=== PATIENT | male | born 1950 | race Caucasian/White ===

== ENCOUNTER 2021-02-21 18:25 | Inpatient (IN) ==
--- NOTE | 2021-02-21 19:13 | Emergency Department Note ---
Lower Extremity Injury HPI General Chief Complaint: Extremity Injury, Lower Stated Complaint: right hip fracture Time Seen by Provider: 02/21/21 18:57 Source: patient Mode of arrival: ambulatory Limitations: no limitations History of Present Illness HPI Narrative: 70-year-old male presents to the emergency department complaining of right hip pain and a possible fracture. The patient states that it began hurting him 1 month ago. He denies any trauma or injury to it. He states he had difficulty walking or pain with walking so called 911. They took him to [facility]. X-ray of the right hip at that time was interpreted as negative so he was discharged. Yesterday had a he had an appointment with Dr. Serrato. He received an injection for his knee at that location. He was at [facility] where an x-ray was taken and the patient was advised that he had a fracture. He presents the emergency department here for further care. Patient states that he has been able to walk but has been using crutches. States that the pain is a 7 on a 0-to-10 scale and is constant it is worse with walking and go up to 10 out of 10 with movement. Being still makes it better it is a dull pain mostly but sometimes sharp. There is no radiation of the pain. It is not associated with any trauma that he can recall. Related Data Home Medications Medication Instructions Recorded Confirmed ketoconazole 2 % topical cream 1 applic TOPICAL QDAY 02/05/20 02/21/21 vit C 250 mg-vit E 90 mg-zinc 40 1 tab PO BID 02/05/20 02/21/21 mg-copper 1 [id number] capsule Previous Rx's Medication Instructions Recorded Nebulizer machine; tubing and #1 ea 03/29/20 supplies ipratropium 0.5 mg-albuterol 3 mg 3 ml INHALATION QID PRN #180 ml 03/29/20 (2.5 mg base)/3 mL nebulization soln duloxetine 60 mg capsule,delayed 60 mg PO DAILY #90 cap 08/29/20 release sucralfate 1 gram tablet 1 g PO QID PRN #120 tab 09/23/20 nitroglycerin 0.4 mg sublingual See Rx Instructions .ROUTE 10/10/20 tablet .COMPLEX #30 tab zolpidem 10 mg tablet 10 mg PO QHS #30 tab 11/22/20 ergocalciferol (vitamin D2) 1,250 See Rx Instructions .ROUTE 11/30/20 mcg (50,000 unit) capsule .COMPLEX #12 cap atorvastatin 20 mg tablet 20 mg PO QHS #90 tab 12/05/20 pantoprazole 40 mg tablet,delayed See Rx Instructions .ROUTE 12/05/20 release .COMPLEX #90 tab cyclobenzaprine 5 mg tablet 5 mg PO TID PRN #60 tab 12/27/20 clopidogrel 75 mg tablet See Rx Instructions .ROUTE 01/12/21 .COMPLEX #90 tab metoprolol succinate 25 mg See Rx Instructions .ROUTE 01/12/21 tablet,extended release 24 hr .COMPLEX #90 tab finasteride 5 mg tablet See Rx Instructions .ROUTE 01/16/21 .COMPLEX #30 tab promethazine 25 mg tablet See Rx Instructions .ROUTE 01/16/21 .COMPLEX #30 tab potassium chloride 10 mEq See Rx Instructions .ROUTE 01/19/21 tablet,extended release .COMPLEX #90 tab buspirone 15 mg tablet See Rx Instructions .ROUTE 02/01/21 .COMPLEX #60 tab furosemide 20 mg tablet See Rx Instructions .ROUTE 02/10/21 .COMPLEX #180 tab tamsulosin 0.4 mg capsule See Rx Instructions .ROUTE 02/10/21 .COMPLEX #180 cap gabapentin 600 mg tablet See Rx Instructions .ROUTE 02/20/21 .COMPLEX #120 tab hydrochlorothiazide 25 mg tablet See Rx Instructions .ROUTE 02/20/21 .COMPLEX #90 tab hydroxyzine HCl 25 mg tablet 25 mg PO QID PRN #30 tab 02/20/21 magnesium oxide 400 mg (241.3 mg See Rx Instructions .ROUTE 02/20/21 magnesium) tablet .COMPLEX #90 tab trazodone 50 mg tablet 50 mg PO QHS #30 tab 02/20/21 oxycodone-acetaminophen 10 mg-325 1 tab PO .q 4-6hrs PRN #210 tab 02/21/21 mg tablet Allergies Allergy/AdvReac Type Severity Reaction Status Date / Time amitriptyline [AMITRIPTYLINE] Allergy Severe UNABLE TO Verified 02/21/21 18:28 URINATE, AT HIGH DOSES baclofen [BACLOFEN] Allergy Severe NAUSEA AND Verified 02/21/21 18:28 VOMITING meloxicam [MELOXICAM] Allergy Severe NAUSEA AND Verified 02/21/21 18:28 VOMITTING tramadol [TRAMADOL] Allergy Intermediate NAUSEA AND Verified 02/21/21 18:28 VOMITING codeine Allergy Mild rash Verified 02/21/21 18:28 latex Allergy Unknown Itching/contact Verified 02/21/21 18:28 dermatitis Review of Systems ROS ROS Narrative: Narrative: Patient has severe anxiety. States he has dependent edema though he has history I believe a congestive heart failure. Constitutional: Denies fever Eyes: Denies eye pain ENT ED: Denies throat pain Cardiovascular: Denies chest pain Respiratory: Denies shortness of breath Gastrointestinal: Denies abdominal pain Musculoskeletal: Reports back pain Integumentary: Denies rash Psychiatric: Reports anxiety Hematological/Lymphatic: Denies easy bleeding Allergic/Immunologic: Denies facial swelling PFSH Narrative Patient History Narrative: Narrative: Medical/Surgical/Family History All Active Problems (Updated 02/22/21 @ 08:41 by Matthew Mayo MD) Closed right hip fracture (Acute) Pain in right hip (Acute) Pain in right knee (Acute) Submandibular gland mass (Acute) Dysphagia (Acute) Muscle spasm (Acute) Peripheral edema (Acute) Dyspnea (Acute) CHF (congestive heart failure) (Acute) Hypoxia (Chronic) Dry skin (Acute) Panic attack (Acute) Anxiety (Acute) Seroma after procedure (Acute) Hematoma (Acute) Ecchymosis (Acute) H/O hernia repair (Acute ~08/11/20) Lumbar back pain with radiculopathy affecting right lower extremity (Acute) Thigh pain (Acute) Abnormal bruising (Acute) Hernia of abdominal cavity, with obstruction (Chronic) Nocturnal hypoxia (Chronic) Lymph node enlargement (Chronic) Abdominal pain (Chronic) COPD mixed type (Chronic) Bronchiectasis (Chronic) Chronic GERD (Chronic) Pulmonary nodules (Chronic) History of surgery (Chronic) Personal history of pulmonary embolism (Chronic) CRPS (complex regional pain syndrome), lower limb (Chronic) High cholesterol (Chronic) Post herpetic neuralgia (Chronic) Obesity, unspecified (Chronic) History of tobacco use (Chronic) Degenerative joint disease (Chronic) Low back pain (Chronic) Neuropathic pain (Chronic) Radiculopathy, lumbosacral region (Chronic) Chronic pain (Chronic) Pain in thoracic spine (Chronic) Idiopathic osteoporosis (Chronic) Chronic SI joint pain (Chronic) Radiculopathy, sacral and sacrococcygeal region (Chronic) Rotator cuff injury (Chronic ~1994) History of shingles (Chronic ~2011) Injury of low back (Chronic ~2007) Dyspnea (Chronic) Constipation (Chronic) Erectile dysfunction of nonorganic origin (Chronic) Herpes zoster complications (Chronic) Incontinence without sensory awareness (Chronic) Lumbosacral strain (Chronic) Depression (Chronic) Full incontinence of feces (Chronic) 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, unspecified site (Chronic) Fatigue (Chronic) Mononeuropathy, unspecified (Chronic) Thoracic or lumbosacral neuritis or radiculitis, unspecified (Chronic) Memory loss (Chronic) Fever, unspecified (Chronic) Rib pain on right side (Chronic) Encounter for long-term (current) use of other medications (Chronic) Radiculopathy, lumbar region (Chronic) Benign prostatic hyperplasia without lower urinary tract symptoms (Chronic) Dry skin (Chronic) Hyperuricemia without signs of inflammatory arthritis and tophaceous disease (Chronic) Encounter for general adult medical examination without abnormal findings (Chronic) Encounter for screening for malignant neoplasm of colon (Chronic) Paresthesia of hand (Chronic) Major depressive disorder, recurrent, moderate (Chronic) Atherosclerosis of extremity with rest pain (Chronic) Anxiety (Chronic) Other elevated white blood cell count (Chronic) Dysphagia (Chronic) Dermatitis (Chronic) Type 2 diabetes mellitus without complications (Chronic) Pain in left knee (Chronic) Encounter for hepatitis C screening test for low risk patient (Chronic) Adjustment disorder, unspecified (Chronic) Peripheral edema (Chronic) Peripheral neuropathy (Chronic) Tight chest (Chronic) Non-ST elevation (NSTEMI) myocardial infarction (Chronic) Benign prostatic hyperplasia with lower urinary tract symptoms (Chronic) Orthostatic hypotension (Chronic) Peritoneal abscess (Chronic) Anemia (Chronic) Hyponatremia (Chronic) Acute cholecystitis (Chronic) Other chest pain (Chronic) Collapsed vertebra, not elsewhere classified, lumbar region, sequela of fracture (Chronic) Throat pain (Chronic) Sinus tachycardia (Chronic) Urinary tract infection (Chronic) Coccyx pain (Chronic) Extensor tenosynovitis of left wrist (Chronic) Anticoagulant long-term use (Chronic) Hematoma of abdominal wall (Chronic) Lumbar back pain (Chronic) Nausea (Chronic) Postprocedural intraabdominal abscess (Chronic) Pneumoperitoneum (Chronic) History of shoulder surgery (Chronic) History of lung surgery (Chronic) Coronary artery disease (Chronic) Chronic low back pain (Chronic) Hypertension (Chronic) Hypercholesterolemia (Chronic) Small bowel obstruction (Chronic) Chest pain, unspecified (Chronic) Septicemia due to Gram-negative organism, unspecified (Chronic) Perforated bowel (Chronic) Abdominal abscess (Chronic) Abdominal pain (Chronic) Vitamin D deficiency (Chronic) Sciatica (Chronic) History of carpal tunnel surgery of right wrist (Chronic ~2015) Umbilical hernia (Chronic) Urinary retention (Chronic) Pneumonia (Chronic ~09/2012) Shingles outbreak (Chronic ~2011) Lower extremity neuropathy (Chronic) Back injury (Chronic) Diabetes mellitus (Chronic) Weakness (Chronic) Urinary incontinence (Chronic) Rotator cuff sprain (Chronic ~1994) Spontaneous pneumothorax (Chronic ~1977) Pneumonia, organism unspecified (Chronic ~08/2012) Other chronic pain (Chronic) Overactive bladder (Chronic 08/28/13) Insomnia, unspecified (Chronic) Hypertension, essential (Chronic) Hyperlipidemia (Chronic) Herpes zoster with unspecified complication (Chronic ~2011) Gastroesophageal reflux (Chronic) Fecal incontinence (Chronic) Depressive disorder (Chronic) Situational depression (Chronic) Contusion of multiple sites, not elsewhere classified (Chronic) Collapsed lung (Chronic) Chronic pain syndrome (Chronic) Benign prostatic hyperplasia (Chronic 05/13/13) Medical History Abdominal abscess Abdominal pain Acute cholecystitis Adjustment disorder, unspecified Anemia Anxiety Atherosclerosis of extremity with rest pain Back injury low back sacral-coccygeal 2007 L&I: Severe chronic pain, disabled, pain pump per Dr Reina Benign prostatic hyperplasia (05/13/13) with urinary symptoms(luts) Benign prostatic hyperplasia with lower urinary tract symptoms Benign prostatic hyperplasia without lower urinary tract symptoms Bronchiectasis Chest pain, unspecified CHF (congestive heart failure) Chronic GERD Chronic low back pain Chronic pain with intrathecal pump in place Chronic pain syndrome Chronic SI joint pain Collapsed lung in the 70's Collapsed vertebra, not elsewhere classified, lumbar region, sequela of fracture Constipation Contusion of multiple sites, not elsewhere classified COPD mixed type Coronary artery disease CRPS (complex regional pain syndrome), lower limb Degenerative joint disease Depression Depressive disorder Dermatitis Diabetes mellitus Dry skin Dysphagia Dyspnea Dyspnea Encounter for general adult medical examination without abnormal findings Encounter for hepatitis C screening test for low risk patient Encounter for long-term (current) use of other medications NARCOTICS Encounter for screening for malignant neoplasm of colon Erectile dysfunction of nonorganic origin Fatigue Fecal incontinence Fever, unspecified Full incontinence of feces Gastroesophageal reflux Herpes zoster complications Herpes zoster with unspecified complication (~2011) High cholesterol History of shingles (~2011) LEFT BUTTOCK History of tobacco use Hypercholesterolemia Hyperlipidemia Hypertension Hypertension, essential Hyperuricemia without signs of inflammatory arthritis and tophaceous disease Hyponatremia Hypoxia Idiopathic osteoporosis with compression fracture, vertebra, active treatment Incontinence without sensory awareness Injury of low back (~2007) SACRAL COCCYGEAL L&I Insomnia, unspecified Low back pain Lower extremity neuropathy Severe, both legs Lumbosacral strain Major depressive disorder, recurrent, moderate Memory loss Mononeuropathy, unspecified Neuropathic pain right lower limb, left lower limb Nocturnal hypoxia Non-ST elevation (NSTEMI) myocardial infarction Obesity, unspecified Orthostatic hypotension 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, unspecified site Other chest pain right side Other chronic pain Low back, Rt hip and buttock, down to leg and toes Other elevated white blood cell count Overactive bladder (08/28/13) Pain in left knee Pain in thoracic spine Paresthesia of hand Perforated bowel Peripheral edema Peripheral neuropathy Peritoneal abscess Personal history of pulmonary embolism Pneumonia (~09/2012) 08/2012 Pneumonia, organism unspecified (~08/2012) Pneumoperitoneum Post herpetic neuralgia Pulmonary nodules Radiculopathy, lumbar region Radiculopathy, lumbosacral region Radiculopathy, sacral and sacrococcygeal region Rib pain on right side Rotator cuff injury (~1994) Rotator cuff sprain (~1994) Sciatica Septicemia due to Gram-negative organism, unspecified Shingles outbreak (~2011) Left buttock Sinus tachycardia Situational depression Small bowel obstruction Spontaneous pneumothorax (~1977) Thoracic or lumbosacral neuritis or radiculitis, unspecified Throat pain Tight chest Type 2 diabetes mellitus without complications Umbilical hernia Urinary incontinence Urinary retention Vitamin D deficiency Weakness Both legs Surgical History H/O hernia repair (~08/11/20) History of carpal tunnel surgery of right wrist (~2015) Dr Earl History of colonoscopy (05/10/16) x 2 2001 & 2015 History of colostomy History of cystoscopy (~07/2013) History of exploratory laparotomy (03/12/19) History of exploratory laparotomy (03/13/19) for postop bleed History of heart artery stent History of lung surgery right lung History of shoulder surgery History of surgery (03/14/19) abdominal wall closure, wound vac placement History of surgery Pump Dye Study w/o sed 03/16/2002/14 Caudal QASIM #1 w/o sed 02/22/20 Vertebroplaty L1 w/sed 12/22/19 Caudal QASIM #3 w/o sed 11/24/19 Caudal QASIM #2 w/o sed 09/07/2019 Caudal QASIM #1 w/o sed 08/17/19 Vertebroplasty T11, L3, L4 w/sed 03/05/19 NAOT L5-S1 w/o sed 03/06/2017 NAOT L5-S1 w/o sed 03/05/2017 NAOT L4-5 w/o sed 03/04/2017 Caudal QASIM #2 w/o sed 12/25/2016 Caudal QASIM w/o sed 11/22/2016 SCS Trial w/sed 09/29/2014 No Procedure-plan pt to trial magic cream no relief witj inj 05/31/11 Sympathetic Block Sacral (caudal) w/out (05-16-11) Sacral Epidural Sympathetic Block w/o sed 05-09-11 No Procedure-no relief with inj. plan medication management. 11/08/10 L2 and L4 Sympathetic Block w/sed (10-23-10) History of transurethral resection of prostate History of umbilical hernia repair (~11/2013) S/P epidural steroid injection Caudal #2 w/o sed 09/07/2019, Caudal QASIM #1 w/o sed 08/17/19, Caudal QASIM #2 w/o sed 12/25/2016; Caudal QASIM w/o sed 11/22/2016 S/P vertebroplasty Vertebroplasty T11, L3, L4 w/sed 03/05/19 Status post colostomy takedown Status post insertion of spinal cord stimulator (09/29/14) electrodes for [email or web address] Family History Family/Other Metastatic cancer, Onset Age: 60 uncle Myocardial infarction cousin, age 40-50 Other Family history of malignant neoplasm, unspecified Migraine Rheumatoid arthritis Social History Smoking Status: Former smoker Alcohol Intake Frequency: does not drink Substance Use: does not use Exam Narrative Narrative: Narrative: Well-developed morbidly obese middle-age male lying in bed calm in mild to moderate acute distress. General Limitations: no limitations General appearance: Present alert and in distress Head Head: Present atraumatic and normocephalic Eye Eye: Present normal appearance and EOMI Neck Neck: Present trachea midline Chest Chest: Present normal inspection and symmetric chest wall rise Respiratory Respiratory: Absent respiratory distress Cardiovascular Cardiovascular: Present tachycardia Adbominal Abdominal: Present soft; Absent tenderness Extremities Extremities: Present other (Right hip with pain with flexion of the hip. Sensorimotor circulation intact distally.) Neurological Neurological: Present alert and oriented X3 Psychiatric Psychiatric: Present anxious Skin Skin: Present warm (WNL) and dry Course Consultations Consultation #1: Consulted Dr. Higgins the orthopedist. He advised that the pa myronnt admitted to the hospitalist and that he would see the patient here in the hospital tomorrow. Time: 19:08 Vital Signs Vital signs: Vital Signs Temperature 99.1 F H 02/21/21 18:26 Pulse Rate 101 H 02/21/21 18:26 Respiratory Rate 18 02/21/21 18:26 Blood Pressure 128/76 02/21/21 18:26 Pulse Oximetry (%) 98 02/21/21 18:26 Temperature 98.0 F 02/22/21 08:00 Pulse Rate 86 02/22/21 08:00 Respiratory Rate 20 02/22/21 08:00 Blood Pressure 130/78 02/22/21 08:00 Pulse Oximetry (%) 94 02/22/21 08:00 [facility] Narrative Medical decision making narrative: Narrative: 70-year-old male presenting with right hip pain and having been told that he has a fracture in the right hip. Initial vital signs have tachycardia at 101 and temperature 99.1. Differential diagnosis includes right hip fracture, right hip pain of other etiology, sepsis in view of fever and tachycardia. Patient has multiple other medical problems to go with this. I reviewed the x-ray myself and it shows a minimally displaced fracture of the right hip. I reviewed the radiologist comments who describes it as a minimally displaced acute subcapital fracture. I discussed the case with Dr. Higgins the orthopedist he is request the patient be admitted to the hospital and that he will see the patient tomorrow for likely surgery. In view of the fever and tachycardia I have added a lactate to the other blood tests which include CBC and CMP and INR per the request of Dr. Higgins. EKG will be obtained as well as a chest x-ray in view of the patient being preop. Case was discussed with the hospitalist who came to the [facility] department eval uate the patient and will continue management as an inpatient. Dr. Salinas will review the preop labs and x-rays and EKG that was ordered for Dr. Higgins. Lab Data Result diagrams: 02/22/21 05:45 02/22/21 05:45 Labs: Lab Results 02/21/21 02/21/21 02/21/21 Range/Units 19:13 19:13 19:13 WBC TNP RBC TNP Hgb TNP Hct TNP MCV TNP MCH TNP MCHC TNP RDW TNP Plt Count TNP MPV TNP Neut % (Auto) TNP Lymph % (Auto) TNP [place] % (Auto) TNP Eos % (Auto) TNP Baso % (Auto) TNP Lymph # (Auto) TNP [place] # (Auto) TNP Eos # (Auto) TNP Baso # (Auto) TNP Absolute Neutrophils TNP Differential Comment TNP PT 16.4 H (11.9-14.5) sec INR 1.3 H (0.9-1.1) VBG Lactic Acid (0.5-2.0) mmol/L Sodium 134 (133-145) mmol/L Potassium 4.5 (3.3-5.1) mmol/L Chloride 97 (96-108) mmol/L Carbon Dioxide 30 (22-30) mmol/L Anion Gap 7.0 L (8.0-16.0) BUN 24 H (8-23) mg/dL Creatinine 0.8 (0.7-1.2) mg/dL GFR Calculation 91 Glucose 96 (70-105) mg/dL Calcium 9.1 (8.6-10.4) mg/dL Total Bilirubin 0.9 (0.1-1.0) mg/dL AST 19 (<40) U/L ALT 13 (<40) U/L Alkaline Phosphatase 134 H (39-117) U/L Total Protein 7.5 (5.9-8.4) gm/dL Albumin 4.2 (3.2-5.2) gm/dL Globulin 3.3 (2.2-3.7) gm/dL Albumin/Globulin Ratio 1.3 (1.0-2.3) Urine Color Urine Appearance (Clear) Urine pH (5.0-9.0) Ur Specific [place] (1.000-1.035) Urine Protein (Negative) mg/dL Urine Glucose (UA) (Negative) mg/dL Urine Ketones (Negative) mg/dL Urine Occult Blood (Negative) mg/dL Urine Nitrate (Negative) Urine Bilirubin (Negative) mg/dL Urine Urobilinogen mg/dL Ur Leukocyte Esterase (Negative) /ug Ur Culture Indicated? 02/21/21 02/21/21 02/21/21 Range/Units 19:32 20:16 20:43 WBC 11.3 H RBC 3.09 L Hgb 9.4 L Hct 29.0 L MCV 93.9 MCH 30.4 MCHC 32.4 RDW 19.2 H Plt Count 224 MPV 11.4 H Neut % (Auto) 79.0 H Lymph % (Auto) 10.7 L [place] % (Auto) 10.1 Eos % (Auto) 0 Baso % (Auto) 0.2 Lymph # (Auto) 1.21 L [place] # (Auto) 1.14 H Eos # (Auto) 0 Baso # (Auto) 0.02 Absolute Neutrophils 8.92 H Differential Comment PT (11.9-14.5) sec INR (0.9-1.1) VBG Lactic Acid 1.2 (0.5-2.0) mmol/L Sodium (133-145) mmol/L Potassium (3.3-5.1) mmol/L Chloride (96-108) mmol/L Carbon Dioxide (22-30) mmol/L Anion Gap (8.0-16.0) BUN (8-23) mg/dL Creatinine (0.7-1.2) mg/dL GFR Calculation Glucose (70-105) mg/dL Calcium (8.6-10.4) mg/dL Total Bilirubin (0.1-1.0) mg/dL AST (<40) U/L ALT (<40) U/L Alkaline Phosphatase (39-117) U/L Total Protein (5.9-8.4) gm/dL Albumin (3.2-5.2) gm/dL Globulin (2.2-3.7) gm/dL Albumin/Globulin Ratio (1.0-2.3) Urine Color Yellow Urine Appearance Clear (Clear) Urine pH 6.0 (5.0-9.0) Ur Specific [place] 1.026 (1.000-1.035) Urine Protein Negative (Negative) mg/dL Urine Glucose (UA) Negative (Negative) mg/dL Urine Ketones Negative (Negative) mg/dL Urine Occult Blood Negative (Negative) mg/dL Urine Nitrate Negative (Negative) Urine Bilirubin Negative (Negative) mg/dL Urine Urobilinogen Negative mg/dL Ur Leukocyte Esterase Negative (Negative) /ug Ur Culture Indicated? No ED POC Tests ED POC Tests: ANN MARIE - SARS Antigen Negative EKG Data EKG #1: EKG attestation: Yes I reviewed and interpreted this EKG. EKG shows normal: sinus rhythm Rate: normal Rhythm: NSR [place]/QRS: normal ST segment elevation in: None ST segment depression in: None Interpretation: normal EKG Discharge Plan Patient/Caregiver Discharge Instructions Pt seen by [employer] TR[employer] DRIVER/PA only: No Clinical Impression: Closed right hip fracture Qualifiers: Encounter type: initial encounter Qualified Code(s): S72.001A - Fracture of unspecified part of neck of right femur, initial encounter for closed fracture Patient Disposition: Xfer As Inpt ([facility]) Condition: Fair Discharge Date/Time: 02/21/21 20:47
[2021-02-21] MEDS ORDERED: 0.9 % SODIUM CHLORIDE 1,000 ML IV SCH (19:15)
[2021-02-21 20:06] LABS: INR 1.3 (0.9-1.1); Prothrombin Time 16.4 sec (11.9-14.5)
[2021-02-21 20:07] LABS: ALT/SGPT 13 U/L (<40); AST/SGOT 19 U/L (<40); Albumin 4.2 gm/dL (3.2-5.2); Albumin/Globulin Ratio 1.3 (1.0-2.3); Alkaline Phosphatase 134 U/L (39-117); Bilirubin,Total 0.9 mg/dL (0.1-1.0); Blood Urea Nitrogen 24 mg/dL (8-23); Calcium 9.1 mg/dL (8.6-10.4); Carbon Dioxide 30 mmol/L (22-30); Chloride 97 mmol/L (96-108); Globulin 3.3 gm/dL (2.2-3.7); Glomerular Filtration Rate 91; Glucose 96 mg/dL (70-105)
--- NOTE | 2021-02-21 20:39 | Internal Med History&Physical ---
HPI History of Present Illness Patient information: Note initiated : 02/21/21 at 8:31 pm Service Date, if different from initiated Date: [] Patient: Brendan Leon 70 y/o M admitted on for right hip fracture. Chief Complaint: [] History of present illness: Mr. Leon is a 70 year old M who presented to the ER following 1 month onset of right hip pain without specific precipitating event. Patient was evaluated a month ago with a negative hip imaging. Ortho next 30 days pain continue to worsen with progressive difficulty ambulating. He was evaluated at the pain clinic and underwent right knee and right hip steroid shot and underwent a repe at imaging that was consistent with right hip fracture. He was subsequently returned to the ER for evaluation. Orthopedics was consulted and recommended admission for operative intervention. Subsequently hospitalist service was consulted. At the time of my evaluation patient is alert and oriented. He was able to answer most of the questions. He takes chronic pain medication and is a very a nxious personality. Denies trauma or fall and has been wondering what might have caused the fracture. Orthopedics ordered MRI in the morning to exclude bony pathology. Pain is reasonably controlled on pain medication. He denies fever, redness, chills, diarrhea, abdominal pain Review of systems 10 point review system was performed and is negative except as above PFSH PFSH All Active Problems (Updated 02/23/21 @ 06:40 by Ian Higgins MD) Closed right hip fracture (Acute) Pain in right hip (Acute) Pain in right knee (Acute) Submandibular gland mass (Acute) Dysphagia (Acute) Muscle spasm (Acute) Peripheral edema (Acute) Dyspnea (Acute) CHF (congestive heart failure) (Acute) Hypoxia (Chronic) Dry skin (Acute) Panic attack (Acute) Anxiety (Acute) Seroma after procedure (Acute) Hematoma (Acute) Ecchymosis (Acute) H/O hernia repair (Acute ~08/11/20) Lumbar back pain with radiculopathy affecting right lower extremity (Acute) Thigh pain (Acute) Abnormal bruising (Acute) Hernia of abdominal cavity, with obstruction (Chronic) Nocturnal hypoxia (Chronic) Lymph node enlargement (Chronic) Abdominal pain (Chronic) COPD mixed type (Chronic) Bronchiectasis (Chronic) Chronic GERD (Chronic) Pulmonary nodules (Chronic) History of surgery (Chronic) Personal history of pulmonary embolism (Chronic) CRPS (complex regional pain syndrome), lower limb (Chronic) High cholesterol (Chronic) Post herpetic neuralgia (Chronic) Obesity, unspecified (Chronic) History of tobacco use (Chronic) Degenerative joint disease (Chronic) Low back pain (Chronic) Neuropathic pain (Chronic) Radiculopathy, lumbosacral region (Chronic) Chronic pain (Chronic) Pain in thoracic spine (Chronic) Idiopathic osteoporosis (Chronic) Chronic SI joint pain (Chronic) Radiculopathy, sacral and sacrococcygeal region (Chronic) Rotator cuff injury (Chronic ~1994) History of shingles (Chronic ~2011) Injury of low back (Chronic ~2007) Dyspnea (Chronic) Constipation (Chronic) Erectile dysfunction of nonorganic origin (Chronic) Herpes zoster complications (Chronic) Incontinence without sensory awareness (Chronic) Lumbosacral strain (Chronic) Depression (Chronic) Full incontinence of feces (Chronic) 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, unspecified site (Chronic) Fatigue (Chronic) Mononeuropathy, unspecified (Chronic) Thoracic or lumbosacral neuritis or radiculitis, unspecified (Chronic) Memory loss (Chronic) Fever, unspecified (Chronic) Rib pain on right side (Chronic) Encounter for long-term (current) use of other medications (Chronic) Radiculopathy, lumbar region (Chronic) Benign prostatic hyperplasia without lower urinary tract symptoms (Chronic) Dry skin (Chronic) Hyperuricemia without signs of inflammatory arthritis and tophaceous disease (Chronic) Encounter for general adult medical examination without abnormal findings (Chronic) Encounter for screening for malignant neoplasm of colon (Chronic) Paresthesia of hand (Chronic) Major depressive disorder, recurrent, moderate (Chronic) Atherosclerosis of extremity with rest pain (Chronic) Anxiety (Chronic) Other elevated white blood cell count (Chronic) Dysphagia (Chronic) Dermatitis (Chronic) Type 2 diabetes mellitus without complications (Chronic) Pain in left knee (Chronic) Encounter for hepatitis C screening test for low risk patient (Chronic) Adjustment disorder, unspecified (Chronic) Peripheral edema (Chronic) Peripheral neuropathy (Chronic) Tight chest (Chronic) Non-ST elevation (NSTEMI) myocardial infarction (Chronic) Benign prostatic hyperplasia with lower urinary tract symptoms (Chronic) Orthostatic hypotension (Chronic) Peritoneal abscess (Chronic) Anemia (Chronic) Hyponatremia (Chronic) Acute cholecystitis (Chronic) Other chest pain (Chronic) Collapsed vertebra, not elsewhere classified, lumbar region, sequela of fracture (Chronic) Throat pain (Chronic) Sinus tachycardia (Chronic) Urinary tract infection (Chronic) Coccyx pain (Chronic) Extensor tenosynovitis of left wrist (Chronic) Anticoagulant long-term use (Chronic) Hematoma of abdominal wall (Chronic) Lumbar back pain (Chronic) Nausea (Chronic) Postprocedural intraabdominal abscess (Chronic) Pneumoperitoneum (Chronic) History of shoulder surgery (Chronic) History of lung surgery (Chronic) Coronary artery disease (Chronic) Chronic low back pain (Chronic) Hypertension (Chronic) Hypercholesterolemia (Chronic) Small bowel obstruction (Chronic) Chest pain, unspecified (Chronic) Septicemia due to Gram-negative organism, unspecified (Chronic) Perforated bowel (Chronic) Abdominal abscess (Chronic) Abdominal pain (Chronic) Vitamin D deficiency (Chronic) Sciatica (Chronic) History of carpal tunnel surgery of right wrist (Chronic ~2015) Umbilical hernia (Chronic) Urinary retention (Chronic) Pneumonia (Chronic ~09/2012) Shingles outbreak (Chronic ~2011) Lower extremity neuropathy (Chronic) Back injury (Chronic) Diabetes mellitus (Chronic) Weakness (Chronic) Urinary incontinence (Chronic) Rotator cuff sprain (Chronic ~1994) Spontaneous pneumothorax (Chronic ~1977) Pneumonia, organism unspecified (Chronic ~08/2012) Other chronic pain (Chronic) Overactive bladder (Chronic 08/28/13) Insomnia, unspecified (Chronic) Hypertension, essential (Chronic) Hyperlipidemia (Chronic) Herpes zoster with unspecified complication (Chronic ~2011) Gastroesophageal reflux (Chronic) Fecal incontinence (Chronic) Depressive disorder (Chronic) Situational depression (Chronic) Contusion of multiple sites, not elsewhere classified (Chronic) Collapsed lung (Chronic) Chronic pain syndrome (Chronic) Benign prostatic hyperplasia (Chronic 05/13/13) Medical History Abdominal abscess Abdominal pain Acute cholecystitis Adjustment disorder, unspecified Anemia Anxiety Atherosclerosis of extremity with rest pain Back injury low back sacral-coccygeal 2007 L&I: Severe chronic pain, disabled, pain pump per Dr Reina Benign prostatic hyperplasia (05/13/13) with urinary symptoms(luts) Benign prostatic hyperplasia with lower urinary tract symptoms Benign prostatic hyperplasia without lower urinary tract symptoms Bronchiectasis Chest pain, unspecified CHF (congestive heart failure) Chronic GERD Chronic low back pain Chronic pain with intrathecal pump in place Chronic pain syndrome Chronic SI joint pain Collapsed lung in the 70's Collapsed vertebra, not elsewhere classified, lumbar region, sequela of fracture Constipation Contusion of multiple sites, not elsewhere classified COPD mixed type Coronary artery disease CRPS (complex regional pain syndrome), lower limb Degenerative joint disease Depression Depressive disorder Dermatitis Diabetes mellitus Dry skin Dysphagia Dyspnea Dyspnea Encounter for general adult medical examination without abnormal findings Encounter for hepatitis C screening test for low risk patient Encounter for long-term (current) use of other medications NARCOTICS Encounter for screening for malignant neoplasm of colon Erectile dysfunction of nonorganic origin Fatigue Fecal incontinence Fever, unspecified Full incontinence of feces Gastroesophageal reflux Herpes zoster complications Herpes zoster with unspecified complication (~2011) High cholesterol History of shingles (~2011) LEFT BUTTOCK History of tobacco use Hypercholesterolemia Hyperlipidemia Hypertension Hypertension, essential Hyperuricemia without signs of inflammatory arthritis and tophaceous disease Hyponatremia Hypoxia Idiopathic osteoporosis with compression fracture, vertebra, active treatment Incontinence without sensory awareness Injury of low back (~2007) SACRAL COCCYGEAL L&I Insomnia, unspecified Low back pain Lower extremity neuropathy Severe, both legs Lumbosacral strain Major depressive disorder, recurrent, moderate Memory loss Mononeuropathy, unspecified Neuropathic pain right lower limb, left lower limb Nocturnal hypoxia Non-ST elevation (NSTEMI) myocardial infarction Obesity, unspecified Orthostatic hypotension 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, unspecified site Other chest pain right side Other chronic pain Low back, Rt hip and buttock, down to leg and toes Other elevated white blood cell count Overactive bladder (08/28/13) Pain in left knee Pain in thoracic spine Paresthesia of hand Perforated bowel Peripheral edema Peripheral neuropathy Peritoneal abscess Personal history of pulmonary embolism Pneumonia (~09/2012) 08/2012 Pneumonia, organism unspecified (~08/2012) Pneumoperitoneum Post herpetic neuralgia Pulmonary nodules Radiculopathy, lumbar region Radiculopathy, lumbosacral region Radiculopathy, sacral and sacrococcygeal region Rib pain on right side Rotator cuff injury (~1994) Rotator cuff sprain (~1994) Sciatica Septicemia due to Gram-negative organism, unspecified Shingles outbreak (~2011) Left buttock Sinus tachycardia Situational depression Small bowel obstruction Spontaneous pneumothorax (~1977) Thoracic or lumbosacral neuritis or radiculitis, unspecified Throat pain Tight chest Type 2 diabetes mellitus without complications Umbilical hernia Urinary incontinence Urinary retention Vitamin D deficiency Weakness Both legs Surgical History H/O hernia repair (~08/11/20) History of carpal tunnel surgery of right wrist (~2015) Dr Earl History of colonoscopy (05/10/16) x 2 2001 & 2015 History of colostomy History of cystoscopy (~07/2013) History of exploratory laparotomy (03/12/19) History of exploratory laparotomy (03/13/19) for postop bleed History of heart artery stent History of lung surgery right lung History of shoulder surgery History of surgery (03/14/19) abdominal wall closure, wound vac placement History of surgery Pump Dye Study w/o sed 03/16/2002/14 Caudal QASIM #1 w/o sed 02/22/20 Vertebroplaty L1 w/sed 12/22/19 Caudal QASIM #3 w/o sed 11/24/19 Caudal QASIM #2 w/o sed 09/07/2019 Caudal QASIM #1 w/o sed 08/17/19 Vertebroplasty T11, L3, L4 w/sed 03/05/19 NAOT L5-S1 w/o sed 03/06/2017 NAOT L5-S1 w/o sed 03/05/2017 NAOT L4-5 w/o sed 03/04/2017 Caudal QAISM #2 w/o sed 12/25/2016 Caudal QASIM w/o sed 11/22/2016 SCS Trial w/sed 09/29/2014 No Procedure-plan pt to trial magic cream no relief witj inj 05/31/11 Sympathetic Block Sacral (caudal) w/out (05-16-11) Sacral Epidural Sympathetic Block w/o sed 05-09-11 No Procedure-no relief with inj. plan medication management. 11/08/10 L2 and L4 Sympathetic Block w/sed (10-23-10) History of transurethral resection of prostate History of umbilical hernia repair (~11/2013) S/P epidural steroid injection Caudal #2 w/o sed 09/07/2019, Caudal QASIM #1 w/o sed 08/17/19, Caudal QASIM #2 w/o sed 12/25/2016; Caudal QASIM w/o sed 11/22/2016 S/P vertebroplasty Vertebroplasty T11, L3, L4 w/sed 03/05/19 Status post colostomy takedown Status post insertion of spinal cord stimulator (09/29/14) electrodes for trial-TC Ice [employer] Family History Family/Other Metastatic cancer, Onset Age: 60 uncle Myocardial infarction cousin, age 40-50 Other Family history of malignant neoplasm, unspecified Migraine Rheumatoid arthritis Social History marital status: occupational status: disabled occupation: [employer] other: Nickname "[employer]" physical activity: walking frequency: 3-4 times per week smoking status: Former smoker quit date: 01/27/08 pack-years: 40 counseling given: other details: Started age 17: Year quit 2007 alcohol intake frequency: does not drink substance use type: does not use seatbelt use: always MEDS/ALLERGIES Home Medications and Allergies Home Medications Medication Instructions Recorded Confirmed Type ketoconazole 2 % topical cream 1 applic TOPICAL QDAY 02/05/20 02/21/21 History vit C 250 mg-vit E 90 mg-zinc 40 1 tab PO BID 02/05/20 02/21/21 History mg-copper 1 be-eefnwg-[id number] capsule Nebulizer machine; tubing and #1 ea 03/29/20 02/21/21 Rx supplies ipratropium 0.5 mg-albuterol 3 mg 3 ml INHALATION QID PRN #180 ml 03/29/20 02/21/21 Rx (2.5 mg base)/3 mL nebulization soln duloxetine 60 mg capsule,delayed 60 mg PO DAILY #90 cap 08/29/20 02/21/21 Rx release sucralfate 1 gram tablet 1 g PO QID PRN #120 tab 09/23/20 02/21/21 Rx nitroglycerin 0.4 mg sublingual See Rx Instructions .ROUTE 10/10/20 02/21/21 Rx tablet .COMPLEX #30 tab zolpidem 10 mg tablet 10 mg PO QHS #30 tab 11/22/20 02/21/21 Rx ergocalciferol (vitamin D2) 1,250 See Rx Instructions .ROUTE 11/30/20 02/21/21 Rx mcg (50,000 unit) capsule .COMPLEX #12 cap atorvastatin 20 mg tablet 20 mg PO QHS #90 tab 12/05/20 02/21/21 Rx pantoprazole 40 mg tablet,delayed See Rx Instructions .ROUTE 12/05/20 02/21/21 Rx release .COMPLEX #90 tab cyclobenzaprine 5 mg tablet 5 mg PO TID PRN #60 tab 12/27/20 02/21/21 Rx clopidogrel 75 mg tablet See Rx Instructions .ROUTE 01/12/21 02/21/21 Rx .COMPLEX #90 tab metoprolol succinate 25 mg See Rx Instructions .ROUTE 01/12/21 02/21/21 Rx tablet,extended release 24 hr .COMPLEX #90 tab finasteride 5 mg tablet See Rx Instructions .ROUTE 01/16/21 02/21/21 Rx .COMPLEX #30 tab promethazine 25 mg tablet See Rx Instructions .ROUTE 01/16/21 02/21/21 Rx .COMPLEX #30 tab potassium chloride 10 mEq See Rx Instructions .ROUTE 01/19/21 02/21/21 Rx tablet,extended release .COMPLEX #90 tab buspirone 15 mg tablet See Rx Instructions .ROUTE 02/01/21 02/21/21 Rx .COMPLEX #60 tab furosemide 20 mg tablet See Rx Instructions .ROUTE 02/10/21 02/21/21 Rx .COMPLEX #180 tab tamsulosin 0.4 mg capsule See Rx Instructions .ROUTE 02/10/21 02/21/21 Rx .COMPLEX #180 cap gabapentin 600 mg tablet See Rx Instructions .ROUTE 02/20/21 02/21/21 Rx .COMPLEX #120 tab hydrochlorothiazide 25 mg tablet See Rx Instructions .ROUTE 02/20/21 02/21/21 Rx .COMPLEX #90 tab hydroxyzine HCl 25 mg tablet 25 mg PO QID PRN #30 tab 02/20/21 02/21/21 Rx magnesium oxide 400 mg (241.3 mg See Rx Instructions .ROUTE 02/20/21 02/21/21 Rx magnesium) tablet .COMPLEX #90 tab trazodone 50 mg tablet 50 mg PO QHS #30 tab 02/20/21 02/21/21 Rx oxycodone-acetaminophen 10 mg-325 1 tab PO .q 4-6hrs PRN #210 tab 02/21/21 02/21/21 Rx mg tablet acetaminophen [Tylenol] 1,000 mg PO Q8H #90 tab 02/23/21 Rx docusate sodium [DOK] 100 mg PO BID #60 cap 02/23/21 Rx methocarbamol 750 mg PO Q8H #30 tab 02/23/21 Rx oxycodone 10 - 20 mg PO Q6 PRN #60 tab 02/23/21 Rx Allergies Allergy/AdvReac Type Severity Reaction Status Date / Time amitriptyline [AMITRIPTYLINE] Allergy Severe UNABLE TO Verified 02/21/21 18:28 URINATE, AT HIGH DOSES baclofen [BACLOFEN] Allergy Severe NAUSEA AND Verified 02/21/21 18:28 VOMITING meloxicam [MELOXICAM] Allergy Severe NAUSEA AND Verified 02/21/21 18:28 VOMITTING tramadol [TRAMADOL] Allergy Intermediate NAUSEA AND Verified 02/21/21 18:28 VOMITING codeine Allergy Mild rash Verified 02/21/21 18:28 latex Allergy Unknown Itching/contact Verified 02/21/21 18:28 dermatitis EXAM Constitutional Vitals: Temp Pulse Resp BP Pulse Ox 99.1 F H 87 18 132/84 100 02/21/21 18:26 02/21/21 19:55 02/21/21 18:26 02/21/21 19:55 02/21/21 19:55 Head normocephalic Oral cavity moist No ear or nose discharge, involuntary eye twitching Eye no subconjunctival pallor, movement symmetrical S1-S2 regular Nonlabored breathing Nondistended nontender abdomen Right lower extremity external rotated and shortened, no cyanosis clubbing or joint swelling Skin no suspicious lesion Psych anxious but no hallucination Neuro normal higher function on limited neuro exam DATA Data Completed and Pending Labs: Labs from last 24 hours 02/21/21 02/21/21 02/21/21 20:16 19:32 19:13 WBC Pending RBC Pending Hgb Pending Hct Pending MCV Pending MCH Pending MCHC Pending RDW Pending Plt Count Pending MPV Pending Neut % (Auto) Pending Lymph % (Auto) [place] % (Auto) Eos % (Auto) Baso % (Auto) Lymph # (Auto) [place] # (Auto) Eos # (Auto) Baso # (Auto) Absolute Neutrophils Differential Comment PT INR VBG Lactic Acid 1.2 Sodium 134 Potassium 4.5 Chloride 97 Carbon Dioxide 30 Anion Gap 7.0 L BUN 24 H Creatinine 0.8 GFR Calculation 91 Glucose 96 Calcium 9.1 Total Bilirubin 0.9 AST 19 ALT 13 Alkaline Phosphatase 134 H Total Protein 7.5 Albumin 4.2 Globulin 3.3 Albumin/Globulin Ratio 1.3 02/21/21 02/21/21 19:13 19:13 WBC TNP RBC TNP Hgb TNP Hct TNP MCV TNP MCH TNP MCHC TNP RDW TNP Plt Count TNP MPV TNP Neut % (Auto) TNP Lymph % (Auto) TNP [place] % (Auto) TNP Eos % (Auto) TNP Baso % (Auto) TNP Lymph # (Auto) TNP [place] # (Auto) TNP Eos # (Auto) TNP Baso # (Auto) TNP Absolute Neutrophils TNP Differential Comment TNP PT 16.4 H INR 1.3 H VBG Lactic Acid Sodium Potassium Chloride Carbon Dioxide Anion Gap BUN Creatinine GFR Calculation Glucose Calcium Total Bilirubin AST ALT Alkaline Phosphatase Total Protein Albumin Globulin Albumin/Globulin Ratio A/P Narrative A/P Narrative: * Right hip fracture-orthopedic consulted. Will undergo operative intervention in a.m. N.p.o. after midnight. * Pain management on as needed opioids Hospitalist consult * Preoperative risk evaluation-based on [employer] [place] [employer] to stratification patient would fall under high risk category given history of coronary artery disease status post stenting. However he does not have history of CKD/decompensated heart failure. His functional baseline is limited to mobility with assistance. However he would be a good candidate for postoperative rehab. There are no modifiable risk factors at this time and Plavix will be continued in the setting of history of coronary artery stent Even though there is increased risk of bleeding. This was explained to patient. Also surgery and anesthesia specific risks will be addressed by individual care providers * History of CAD on Plavix/statin/beta-rivera/nitroglycerin * History of CHF currently compensated continue beta-rivera/diuretic * Chronic pain on oxycodone * History of hypertension continue beta-rivera/thiazide * BPH on tamsulosin/finasteride * Neuropathy continue gabapentin * Anxiety disorder continue oxygen/BuSpar * History of COPD continue bronchodilators * Peptic ulcer disease continue PPI/sucralfate * Full code * Prophylaxis will be as per orthopedics Plan * Inpatient admission * Orthopedic consult * N.p.o. after midnight * Pre-existing medical condition management as above * Aggressive postop PT OT * Discharge planning per case management Time Spent With Patient Time: Total time spent is greater than 50% in coordination of care (as documented) at patient's floor/unit and/or counseling patient:
[2021-02-21 20:50] LABS: Basophils # (Auto) 0.02 K/mcL (0.00-0.20); Basophils % (Auto) 0.2 % (0.0-2.0); Eosinophils # (Auto) 0 K/mcL (0.00-0.70); Eosinophils % (Auto) 0 % (0.0-7.0); Hemoglobin 9.4 g/dL (13.5-16.5); Lymphocytes # (Auto) 1.21 K/mcL (1.50-4.80); Lymphocytes % (Auto) 10.7 % (15.0-49.0); Mean Cell Volume 93.9 fL (80.0-100.0); Mean Corpuscular HGB Conc 32.4 g/dL (31.0-36.0); Mean Platelet Volume 11.4 fL (7.4-10.4); Monocytes # (Auto) 1.14 K/mcL (0.10-0.90); Monocytes % (Auto) 10.1 % (1.0-12.0); Platelet Count 224 K/mcL (140-440); RBC 3.09 M/mcL (4.50-5.90); Red Cell Distribution Width 19.2 % (11.5-14.5); WBC 11.3 K/mcL (4.5-11.0)
[2021-02-21] MEDS ORDERED: MAGNESIUM SULFATE 2 GM/50 ML BAG IV PRN (20:53)
[2021-02-21] MEDS ORDERED: BISACODYL 10 MG SUPP.RECT PR PRN (20:53)
[2021-02-21] MEDS ORDERED: ONDANSETRON 4 MG/2 ML VIAL IV PRN (20:53)
[2021-02-21] MEDS ORDERED: ONDANSETRON 4 MG ODT TABLET SL PRN (20:53)
[2021-02-21] MEDS ORDERED: POLYETHYLENE GLYCOL 3350 17 GM PACKET PO PRN (20:53)
[2021-02-21] MEDS ORDERED: MELATONIN 3 MG TABLET PO PRN (20:53)
[2021-02-21] MEDS ORDERED: ACETAMINOPHEN 650 MG/65 ML BAG IV PRN (20:53)
[2021-02-21] MEDS ORDERED: POTASSIUM CHLORIDE 20 MEQ PACKET PO PRN (20:53)
[2021-02-21] MEDS ORDERED: CLOPIDOGREL 75 MG TABLET PO SCH (20:53)
[2021-02-21] MEDS ORDERED: HYDROCHLOROTHIAZIDE 25 MG TABLET PO PRN (20:53)
[2021-02-21] MEDS ORDERED: IPRATROPIUM/ALBUTEROL 3 ML AMPUL.NEB NEB PRN (20:53)
[2021-02-21] MEDS ORDERED: POTASSIUM CHLORIDE 40 MEQ in DEXTROSE 5% IN WATER 500 ML IV PRN (20:53)
[2021-02-21] MEDS ORDERED: ACETAMINOPHEN 325 MG TABLET PO PRN (20:53)
[2021-02-21] MEDS ORDERED: NITROGLYCERIN 0.4 MG TAB.SUBL SL PRN (21:05)
--- NOTE | 2021-02-21 21:10 | EKG ---
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 Measurements Intervals [place] Rate: 93 P: 69 GA: 126 QRS: 60 QRSD: 104 T: 38 QT: 382 QTc: 476 Interpretive Statements Sinus rhythm Probable left atrial enlargement Baseline wander in lead(s) I,II,aVR,aVF,V2 NO PRIOR TRACING FOR COMPARISON NORMAL TRACING Electronically Signed On 02-21-2021 21:10:36 PDT by Prabhu López M.D. /[facility] [place]/[email or web address]/[id number]
[2021-02-21] MEDS: DOCUSATE SODIUM 100 MG CAPSULE PO SCH (21:20)
[2021-02-21] MEDS: traZODone HCL 50 MG TABLET PO SCH (21:20)
[2021-02-21] MEDS: ATORVASTATIN 20 MG TABLET PO SCH (21:21)
[2021-02-21] MEDS: oxyCODONE/APAP 10/325MG TABLET PO PRN (21:21)
[2021-02-21] MEDS: SENNOSIDES/DOCUSATE SODIUM 1 TAB TABLET PO SCH (21:22)
[2021-02-21] MEDS: 0.9 % SODIUM CHLORIDE 10 ML SYRINGE IV SCH (21:22)
[2021-02-21] MEDS: GABAPENTIN 300 MG CAPSULE PO SCH (21:42)
[2021-02-21] MEDS: TAMSULOSIN 0.4 MG CAPSULE PO SCH (21:43)
[2021-02-21] MEDS: FINASTERIDE 5 MG TABLET PO SCH ×2 (21:43→21:48)
[2021-02-21] MEDS: ZOLPIDEM 5 MG TABLET PO SCH (21:43)
[2021-02-21 22:36] LABS: Appearance,Urine CLEAR (Clear); Bilirubin,Urine Negative (Negative); Color,Urine YELLOW; Culture Indicated,Urine No; Glucose,Urine (UA) Negative (Negative); Ketones,Urine Negative (Negative); Leukocyte Esterase,Urine Negative /ug (Negative); Nitrate,Urine Negative (Negative); Protein,Urine Negative (Negative); Specific Gravity,Urine 1.026 (1.000-1.035); Urine Blood Negative (Negative); Urobilinogen,Urine Negative
--- NOTE | 2021-02-22 03:39 | XRay Report ---
CLINICAL INFORMATION: Chest pain COMPARISON: 12/05/2020 FINDINGS: Mild cardiomegaly is unchanged. Slight enlargement of the right hilum demonstrates long-term stability. Left hilum and the remaining mediastinum are normal. Upper lobe pulmonary vessels show slight redistribution, but no definite edema. Minor bibasilar atelectasis noted. No effusion IMPRESSION: Borderline CHF or volume overload. Minor bibasilar atelectasis Interpreted and Authenticated by: Robb Blevins 02/22/21
[2021-02-22] MEDS: 0.9 % SODIUM CHLORIDE 10 ML SYRINGE IV SCH ×3 (04:15→20:17)
[2021-02-22] MEDS: oxyCODONE/APAP 10/325MG TABLET PO PRN ×2 (04:15→19:38)
[2021-02-22 07:17] LABS: Basophils # (Auto) 0.04 K/mcL (0.00-0.20); Basophils % (Auto) 0.4 % (0.0-2.0); Eosinophils # (Auto) 0.01 K/mcL (0.00-0.70); Eosinophils % (Auto) 0.1 % (0.0-7.0); Hematocrit 28.1 % (41.0-55.0); Hemoglobin 8.9 g/dL (13.5-16.5); Lymphocytes # (Auto) 1.39 K/mcL (1.50-4.80); Lymphocytes % (Auto) 14.6 % (15.0-49.0); Mean Cell Volume 95.3 fL (80.0-100.0); Mean Corpuscular HGB Conc 31.7 g/dL (31.0-36.0); Mean Platelet Volume 13.5 fL (7.4-10.4); Monocytes # (Auto) 1.26 K/mcL (0.10-0.90); Monocytes % (Auto) 13.2 % (1.0-12.0); Neutrophils % (Auto) 71.7 % (38.0-78.0); RBC 2.95 M/mcL (4.50-5.90); Red Cell Distribution Width 19.6 % (11.5-14.5); WBC 9.5 K/mcL (4.5-11.0)
--- NOTE | 2021-02-22 07:22 | Consultation ---
DATE OF CONSULTATION: 02/21/2021 DATE OF CONSULTATION: 02/21/2021 REASON FOR CONSULTATION: Right hip fracture. CONSULTING PROVIDER: Matthew Mayo M.D., ER provider of [facility]. HISTORY OF PRESENT ILLNESS: The patient is a 70-year-old male who is a lucid and complains of right hip pain. He reports that it began hurting approximately a month ago where he was presented to [facility] for further evaluation where x-rays were negative per him. He states that he subsequently has been having increasing pain. He was seen by the pain clinic at [facility] which he had a knee injection as well as a hip injection. These appeared to be intra-articular steroid in nature; however, continued pain. He saw his primary care today, which repeat x-rays demonstrated a displaced fracture of the right femoral neck. He reports he has been using 2 crutches for the last several days secondary to increasing pain. He has nighttime pain as well. He denies any trauma to this hip in the past, but does have significant medical history to include back pain issues, which thought potentially with radicular in nature; however, presented today for known right hip fracture. PAST SURGICAL HISTORY: He has had multiple surgeries on the abdomen as well as his bladder with the most recent one in August. He has had cardiac stents placed, coronary artery disease. He has had a pneumo on the right side, which has been treated in the past as well. He has had carpal tunnel surgery, surgery on his right shoulder, multiple vertebroplasties, colostomy with colostomy takedown, abdominal abscesses. PAST MEDICAL HISTORY: Significant for congestive heart failure, anxiety, COPD -- chronic in nature, CRPS, obesity, radiculopathy and erectile dysfunction. ALLERGIES: AMITRIPTYLINE, BACLOFEN, MELOXICAM, TRAMADOL, CODEINE, LATEX. SOCIAL HISTORY: Resides here locally. Denies tobacco use. HOME MEDICATIONS: He takes nebulizer treatments including ipratropium and albuterol inhaler, duloxetine, sucralfate, nitroglycerin patches, zolpidem, vitamin D, atorvastatin, cyclobenzaprine, Plavix, metoprolol, finasteride, buspirone, furosemide, gabapentin, hydrochlorothiazide, and Percocet. REVIEW OF SYSTEMS: Other than mentioned in HPI, denies any changes. PHYSICAL EXAMINATION: VITAL SIGNS: He is afebrile, heart rate 87, pulse oximetry 100%. He is on nasal cannula, blood pressure 132/84. GENERAL: He is alert, oriented, interactive, appropriate. EXTREMITIES: Examination of the right hip reveals pain with log roll of his hip. He has no obvious deformity, swelling or discoloration about the thigh itself. His foot is warm and well perfused. Sensation intact to light touch. IMAGING: He had plain radiographs of his right hip, which demonstrated a displaced femoral neck fracture. LABORATORY DATA: Pending including CBC, CMP, INR. ASSESSMENT AND PLAN: This is a 70-year-old male who has a right displaced femoral neck fracture. He has had a steroid injection of the hip yesterday as well as his knee without resolution of symptoms. He does have some medical history including pulmonary and cardiac issues. I did discuss the nature of this injury with him as well as treatment options to include operative and nonoperative treatment. Operative treatment I do think is in his best interest, however, he has significantly increased risk of infection. From that standpoint, he had a steroid injection completed within the past several days. I did discuss ways we can hopefully mitigate this. Otherwise, nonoperative treatment would lend him to be nonweightbearing in this fashion and possibly lead to AVN given the displaced nature of the femoral neck fracture requiring surgery in the future, which is an option for him. With further discussion, he understands. He does want to proceed with surgery. I will also obtain an MRI of his hip just to rule out any pathological process ongoing as it is a bit unusual for this just to spontaneously occur without any trauma that he is aware of. Can be obtained this in the morning. Plan will be for operative fixation of his right hip with a right hip hemiarthroplasty tomorrow afternoon on a semi-elective basis. We will also have the hospitalist indication for ensuring medical optimized given his medical comorbidities. DLW:man Job ID: [id number] Doc ID: [id number] MD KARON Kaye
[2021-02-22] MEDS: MULTIVIT,THER IRON,CA,FA & MIN 1 TABLET PO SCH (07:45)
[2021-02-22] MEDS: DOCUSATE SODIUM 100 MG CAPSULE PO SCH ×2 (07:45→20:17)
[2021-02-22] MEDS: POTASSIUM CHLORIDE 10 MEQ TABLET PO SCH (08:16)
[2021-02-22] MEDS: PANTOPRAZOLE 40 MG TABLET PO SCH (08:16)
[2021-02-22] MEDS: GABAPENTIN 300 MG CAPSULE PO SCH ×4 (08:18→20:17)
[2021-02-22 08:19] LABS: ALT/SGPT 12 U/L (<40); AST/SGOT 21 U/L (<40); Albumin 3.5 gm/dL (3.2-5.2); Albumin/Globulin Ratio 1.1 (1.0-2.3); Alkaline Phosphatase 117 U/L (39-117); Bilirubin,Direct < 0.2 mg/dL (0-0.3); Bilirubin,Total 0.6 mg/dL (0.1-1.0); Blood Urea Nitrogen 23 mg/dL (8-23); Calcium 8.8 mg/dL (8.6-10.4); Carbon Dioxide 28 mmol/L (22-30); Chloride 96 mmol/L (96-108); Globulin 3.2 gm/dL (2.2-3.7); Glomerular Filtration Rate 96; Glucose 105 mg/dL (70-105); Lactate Dehydrogenase 356 U/L (135-225); Phosphorous 3.7 mg/dL (2.5-4.5); Triglycerides 80 mg/dL (<150); Uric Acid 4.8 mg/dL (2.5-8.0)
[2021-02-22] MEDS: FUROSEMIDE 20 MG TABLET PO SCH ×2 (08:24→14:17)
[2021-02-22] MEDS: DULoxetine 30 MG CAPSULE PO SCH (08:25)
[2021-02-22] MEDS: METOPROLOL SUCCINATE 25 MG TAB.XL.24H PO SCH (08:25)
[2021-02-22] MEDS ORDERED: LORazepam 2 MG/ML VIAL IV ONE ×2 (08:40→18:40)
[2021-02-22] MEDS: HYDROmorphone 0.5 MG/0.5 ML SYRINGE IV PRN ×3 (08:57→19:21)
[2021-02-22 09:29] LABS: Platelet Count 187 K/mcL (140-440)
[2021-02-22] MEDS ORDERED: 0.9 % SODIUM CHLORIDE 250 ML IV SCH (12:00)
[2021-02-22] MEDS ORDERED: SCOPOLAMINE 1 PATCH PATCH TOPICAL PRN (13:00)
--- NOTE | 2021-02-22 13:04 | Magnetic Resonance Report ---
CLINICAL INFORMATION: Hip pain. Subcapital fracture. Evaluate for pathologic lesion COMPARISON: Pelvic MRI 09/03/2009 FINDINGS: Acute subcapital fracture right hip shows no significant displacement. There is moderate intramedullary edema in the adjacent femoral head and femoral neck, but no evidence of underlying mass. Moderate effusion noted within the right hip. 18 mm intramedullary lesion in the inferior left femoral head neck junction is new from the 2010 MRI. It could potentially represent a pathologic lesion such as a primary or secondary tumor. It is low signal on T1 and increased signal on T2 and FLAIR. There are no other osseous lesions. Both SI and hip joints are normal with alignment without arthritic change. Soft tissues show visualized small/ large bowel, prostate seminal vesicles and urinary bladder are normal. Muscle and fascial planes unremarkable. IMPRESSION: 1. Minimally displaced acute subcapital fracture of the right hip. No evidence of underlying tumor or other pathology. 2. 18 mm intramedullary lesion in left inferior femoral head neck junction-new from 2010. This could potentially indicate primary or secondary bone tumor. At this point, consider radionuclide bone scan (not performed at [facility]) to evaluate for uptake in this lesion and also additional lesions which could indicate widespread osseous metastases. Interpreted and Authenticated by: Robb Blevins 02/22/21
--- NOTE | 2021-02-22 14:08 | Internal Med Progress Note ---
SUBJECTIVE Subjective Patient information: Note initiated : 02/22/21 at 2:07 pm Service Date, if different from initiated Date: [] Patient: Brendna Leon 70 y/o M admitted on 02/21/21 for right hip fracture. Chief Complaint: Interval history: Mr. Leon is a 70 year old M who presented to the ER following 1 month onset of right hip pain without specific precipitating event. Patient was evaluated a month ago with a negative hip imaging. Ortho next 30 days pain continue to worsen with progressive difficulty ambulating. He was evaluated at the pain clinic and underwent right knee and right hip steroid shot and underwent a repeat imaging that was consistent with right hip fracture. He was subsequently returned to the ER for evaluation. Orthopedics was consulted and recommended admission for operative intervention. Subsequently hospitalist service was consulted. At the time of my evaluation patient is alert and oriented. He was able to answer most of the questions. He takes chronic pain medication and is a very anxious personality. Denies trauma or fall and has been wondering what might have caused the fracture. Orthopedics ordered MRI in the morning to exclude bony pathology. Pain is reasonably controlled on pain medication. He denies fever, redness, chills, diarrhea, abdominal pain 02/22-patient due for surgical intervention today. MRI hip pending. No overnight events. Hemoglobin 8.9, stable hemodynamics and vitals. Pain in good control. Will review postop. Constitutional Vitals: Vital Signs Temp Pulse Resp BP Pulse Ox 97.3 F 80 20 125/76 94 02/22/21 12:00 02/22/21 12:00 02/22/21 12:00 02/22/21 12:00 02/22/21 12:00 Period Temp Pulse Resp BP Sys/Uribe Pulse Ox Last 24 Hr 97.3 F-99.1 F 80-101 16-20 121-160/73-86 90-100 Intake and Output 02/22/21 02/22/21 02/22/21 05:59 13:59 21:59 Intake Total 698 Output Total 575 1959 Balance 123 -1959 Complains of pain at the fracture site. Nonlabored breathing Anxious No lymphedema Intake & Output: Intake & Output 02/22/21 02/22/21 02/22/21 05:59 13:59 21:59 Intake Total 698 Output Total 575 1959 Balance 123 -1960 Intake: IV 698 Sodium Chloride 0.9% 1,000 ml @ 698 100 mls/hr IV .Q10H [facility] Rx#: [id number] Oral 0 Output: Urine Catheter Amount 175 Void Amount 400 1960 Other: Urine Appearance Clear Urine Color Bright Yellow Bright Yellow Urine Odor Normal Stool Size Moderate Stool Color Brown Stool Consistency Loose # Bowel Movements 1 OBJ DATA Labs CBC & Chem 7: 02/23/21 07:19 02/23/21 07:19 Labs: Abnormal Lab Results 02/22/21 02/22/21 02/21/21 05:45 05:45 20:16 WBC 11.3 H RBC 2.95 L 3.09 L Hgb 8.9 L 9.4 L Hct 28.1 L 29.0 L RDW 19.6 H 19.2 H MPV 13.5 H 11.4 H Neut % (Auto) 79.0 H Lymph % (Auto) 14.6 L 10.7 L [place] % (Auto) 13.2 H Lymph # (Auto) 1.39 L 1.21 L [place] # (Auto) 1.26 H 1.14 H Absolute Neutrophils 8.92 H PT INR Anion Gap BUN Alkaline Phosphatase Lactate Dehydrogenase 356 H 02/21/21 02/21/21 19:13 19:13 WBC RBC Hgb Hct RDW MPV Neut % (Auto) Lymph % (Auto) [place] % (Auto) Lymph # (Auto) [place] # (Auto) Absolute Neutrophils PT 16.4 H INR 1.3 H Anion Gap 7.0 L BUN 24 H Alkaline Phosphatase 134 H Lactate Dehydrogenase Meds: Medications Acetaminophen (Acetaminophen 325 Mg Tablet) 650 mg PO Q4-6HP PRN; Protocol PRN Reason: Per Pain Protocol/Fever > 101 Albuterol/Ipratropium (Ipratropium/Albuterol 3 Ml Ampul.Neb) 3 ml NEB QID PRN PRN Reason: shortness of breath or wheezing Atorvastatin Calcium (Atorvastatin 20 Mg Tablet) 20 mg PO QHS [facility] Last Admin: 02/21/21 21:21 Dose: 20 mg Documented by: Bisacodyl (Bisacodyl 10 Mg Supp.Rect) 10 mg NC Q2-3DAYS PRN PRN Reason: Constipation Clopidogrel Bisulfate (Clopidogrel 75 Mg Tablet) 75 mg PO DAILY [facility] Docusate Sodium (Docusate Sodium 100 Mg Capsule) 100 mg PO BID [facility] Last Admin: 02/22/21 07:45 Dose: Not Given Documented by: Duloxetine HCl (Duloxetine 30 Mg Capsule) 60 mg PO DAILY [facility] Last Admin: 02/22/21 08:25 Dose: 60 mg Documented by: Finasteride (Finasteride 5 Mg Tablet) 5 mg PO HS [facility] Last Admin: 02/21/21 21:43 Dose: 5 mg Documented by: Furosemide (Furosemide 20 Mg Tablet) 0 mg PO BID@0800,1200 [facility] Last Admin: 02/22/21 08:24 Dose: 20 mg Documented by: Gabapentin (Gabapentin 300 Mg Capsule) 600 mg PO QID [facility] Last Admin: 02/22/21 08:18 Dose: Not Given Documented by: Hydrochlorothiazide (Hydrochlorothiazide 25 Mg Tablet) 0 mg PO DAILYP PRN PRN Reason: Edema Hydromorphone HCl (Hydromorphone 0.5 Mg/0.5 Ml Syringe) 0.25 - 0.5 mg IV Q4HP PRN; Protocol PRN Reason: Per Pain Protocol Last Admin: 02/22/21 08:57 Dose: 0.5 mg Documented by: Potassium Chloride 40 meq/ (Dextrose) 520 mls @ 130 mls/hr IV UD PRN PRN Reason: K+ = or < 3.5 Acetaminophen (Ofirmev) 650 mg in 65 mls @ 130 mls/hr IV Q6HP PRN; Protocol PRN Reason: Per Pain Protocol/Fever > 101 Magnesium Sulfate (Magnesium Sulfate) 2 gm in 50 mls @ 50 mls/hr IV UD PRN PRN Reason: MG = or < 1.7 Sodium Chloride (Sodium Chloride 0.9%) 250 mls @ 20 mls/hr IV .[id number] [facility] Stop: 02/23/21 00:29 Iron Carb/Multivit/[place]/Folic Acid (Multivit,Ther Iron,Ca,Fa & Min 1 Tablet) 1 tab PO DAILY [facility] Last Admin: 02/22/21 07:45 Dose: Not Given Documented by: Melatonin (Melatonin 3 Mg Tablet) 3 mg PO HSP PRN PRN Reason: Insomnia Metoprolol Succinate (Metoprolol Succinate 25 Mg Tab.Xl.24h) 25 mg PO DAILY [facility] Last Admin: 02/22/21 08:25 Dose: 25 mg Documented by: Nitroglycerin (Nitroglycerin 0.4 Mg Tab.Subl) 0.4 mg SL Q5M PRN PRN Reason: Chest Pain Ondansetron HCl (Ondansetron 4 Mg Odt Tablet) 4 mg SL Q4-6HP PRN; Protocol PRN Reason: Nausea And Vomiting Ondansetron HCl (Ondansetron 4 Mg/2 Ml Vial) 4 mg IV Q4-6HP PRN; Protocol PRN Reason: Nausea And Vomiting Oxycodone/Acetaminophen (Oxycodone/Apap 10/325mg Tablet) 1 tab PO .q 4-6hrs PRN; Protocol PRN Reason: Pain Last Admin: 02/22/21 04:15 Dose: 1 tab Documented by: Pantoprazole Sodium (Pantoprazole 40 Mg Tablet) 40 mg PO [facility] Last Admin: 02/22/21 08:16 Dose: Not Given Documented by: Polyethylene Glycol (Polyethylene Glycol 3350 17 Gm Packet) 17 gm PO DAILYP PRN PRN Reason: Constipation Potassium Chloride (Potassium Chloride 10 Meq Tablet) 30 meq PO [facility] Last Admin: 02/22/21 08:16 Dose: Not Given Documented by: Potassium Chloride (Potassium Chloride 20 Meq Packet) 40 meq PO DAILYP PRN PRN Reason: K+ < 3.5 Scopolamine (Scopolamine 1 Patch Patch) 1 patch TOPICAL PREOP PRN PRN Reason: Nausea And Vomiting Senna/Docusate Sodium (Sennosides/Docusate Sodium 1 Tab Tablet) 1 tab PO [facility] Last Admin: 02/21/21 21:22 Dose: 1 tab Documented by: Sodium Chloride (0.9 % Sodium Chloride 10 Ml Syringe) 10 ml IV Q8 [facility] Last Admin: 02/22/21 04:15 Dose: 10 ml Documented by: Sucralfate (Sucralfate 1 Gm Tablet) 1 gm PO QIDP PRN PRN Reason: acid reflux Tamsulosin HCl (Tamsulosin 0.4 Mg Capsule) 0.8 mg PO [facility] Last Admin: 02/21/21 21:43 Dose: 0.8 mg Documented by: Trazodone HCl ([facility]odone Hcl 50 Mg Tablet) [facility] Last Admin: 02/21/21 21:20 Dose: 50 mg Documented by: Zolpidem Tartrate ([facility]olpidem 5 Mg Tablet) [facility] Last Admin: 02/21/21 21:43 Dose: 10 mg Documented by: A/P Narrative A/P Narrative: * Right hip fracture-scheduled for surgery today * Pain management on as needed opioids Hospitalist consult * History of CAD continue Plavix postoperatively/statin/beta- rivera/nitroglycerin * History of CHF currently compensated continue beta-rivera/diuretic * Chronic pain on oxycodone * History of hypertension continue beta-rivera/thiazide * BPH on tamsulosin/finasteride * Neuropathy continue gabapentin * Anxiety disorder continue oxygen/BuSpar * History of COPD continue bronchodilators * Peptic ulcer disease continue PPI/sucralfate * Prophylaxis will be as per orthopedics Plan * Review postop * Postop management per orthopedics * Continue pre-existing medical condition management as above * PT OT/nutrition support/incentive spirometer use * Discharge planning per case management Time Spent With Patient Time: Total time spent is greater than 50% in coordination of care (as document ed) at patient's floor/unit and/or counseling patient: QUALITY VTE Deep Vein Thrombosis/Pulmonary Embolism Present on Admission: No
[2021-02-22] MEDS ORDERED: ceFAZolin 2 GM in DEXTROSE 5% IN WATER 50 ML IV SCH ×2 (15:45→18:15)
[2021-02-22] MEDS ORDERED: HYDROmorphone* 2 MG/ML VIAL ONE (16:00)
[2021-02-22] MEDS ORDERED: DEXAMETHASONE 10 MG/ML VIAL ONE (16:00)
[2021-02-22] MEDS ORDERED: ESMOLOL 100 MG/10 ML VIAL IV ONE (16:00)
[2021-02-22] MEDS ORDERED: ACETAMINOPHEN 1,000 MG/100 ML BAG IV ONE (16:00)
[2021-02-22] MEDS ORDERED: MAGNESIUM SULFATE 2 GM/50 ML BAG IV ONE (16:00)
[2021-02-22] MEDS ORDERED: KETAMINE 50 MG/ML ML ONE (16:00)
[2021-02-22] MEDS ORDERED: ONDANSETRON 4 MG/2 ML VIAL ONE (16:00)
[2021-02-22] MEDS ORDERED: LIDOCAINE HCL/PF 100 MG/5 ML SYRINGE IV ONE (16:00)
[2021-02-22] MEDS ORDERED: PROPOFOL 200 MG/20 ML VIAL IV ONE (16:00)
[2021-02-22] MEDS ORDERED: SUCCINYLCHOLINE 20 MG/ML ML IV ONE (16:00)
[2021-02-22] MEDS ORDERED: fentaNYL 250 MCG/5 ML VIAL IV ONE (16:00)
[2021-02-22] MEDS ORDERED: TRANEXAMIC ACID 1,000 MG/10 ML VIAL IV ONE ×3 (16:00→18:31)
[2021-02-22] MEDS ORDERED: VANCOMYCIN 1 GM VIAL TOPICAL SCH (16:20)
[2021-02-22] MEDS ORDERED: TOBRAMYCIN SULFATE 1.2 GM VIAL TOPICAL ONE (16:20)
[2021-02-22] MEDS ORDERED: LACTATED RINGERS 1,000 ML IV SCH (17:00)
[2021-02-22] MEDS ORDERED: NALOXONE HCL 0.4 MG/ML VIAL IV PRN (17:00)
[2021-02-22] MEDS ORDERED: IPRATROPIUM/ALBUTEROL 3 ML AMPUL.NEB NEB PRN (17:00)
[2021-02-22] MEDS ORDERED: diphenhydrAMINE 50 MG/ML VIAL IV PRN (17:00)
[2021-02-22] MEDS ORDERED: METHOCARBAMOL 1,000 MG/10 ML VIAL IV PRN (17:00)
[2021-02-22] MEDS ORDERED: FLUMAZENIL 0.1 MG/ML ML IV PRN (17:00)
[2021-02-22] MEDS ORDERED: METOPROLOL TARTRATE 5 MG/5 ML VIAL IV PRN (17:00)
[2021-02-22] MEDS ORDERED: ATROPINE SULFATE 0.4 MG/ML VIAL IV PRN (17:00)
[2021-02-22] MEDS ORDERED: ePHEDrine 50 MG/ML AMPUL IV PRN (17:00)
[2021-02-22] MEDS ORDERED: ONDANSETRON 4 MG/2 ML VIAL IV PRN (17:00)
[2021-02-22] MEDS: ACETAMINOPHEN 1,000 MG/100 ML BAG IV ONE ×2 (17:30→18:15)
--- NOTE | 2021-02-22 17:56 | Brief Operative Note ---
Brief Operative Note Date of procedure: 02/22/21 Pre-op diagnosis: right femoral neck fracture Post-op diagnosis: same Procedure: right hip hemiarthroplasty Grafts/Implants: Yes Anesthesia: GETA Findings: femoral neck fracture Complications: none Surgeon: Ina Higgins [employer] Repairer: Sunday Peterson Estimated blood loss (cc): 400 Tourniquet Time (Minutes): 0 Specimens Removed/Pathology: none sent Condition: stable Disposition: PACU
[2021-02-22] MEDS ORDERED: BENZOCAINE/MENTHOL 1 LOZENGE PO PRN (18:01)
[2021-02-22] MEDS: fentaNYL 100 MCG/2 ML VIAL IV PRN ×8 (18:06→18:22)
[2021-02-22] MEDS: MEPERIDINE 25 MG/ML VIAL IV PRN ×2 (18:10→18:45)
[2021-02-22] MEDS ORDERED: HYDROmorphone 1 MG/ML SYRINGE IV ONE (18:20)
[2021-02-22] MEDS ORDERED: HYDROmorphone 0.5 MG/0.5 ML SYRINGE ONE (18:30)
[2021-02-22] MEDS ORDERED: LORazepam 2 MG/ML VIAL ONE (18:41)
--- NOTE | 2021-02-22 18:42 | XRay Report ---
CLINICAL INFORMATION: s/p right hip niranjan arthroplasty COMPARISON: 02/21/2021 FINDINGS: Right hip prostheses anatomically aligned. There there are antibiotic beads in the lateral and medial soft tissues. Both SI and left hip joints normal. IMPRESSION: Right hip prostheses anatomically aligned. Interpreted and Authenticated by: Robb Blevins 02/22/21
[2021-02-22] MEDS: LACTATED RINGERS 1,000 ML IV SCH (19:30)
[2021-02-22] MEDS: ZOLPIDEM 5 MG TABLET PO SCH (20:17)
[2021-02-22] MEDS: TAMSULOSIN 0.4 MG CAPSULE PO SCH (20:17)
[2021-02-22] MEDS: ATORVASTATIN 20 MG TABLET PO SCH (20:17)
[2021-02-22] MEDS: traZODone HCL 50 MG TABLET PO SCH (20:17)
[2021-02-22] MEDS: FINASTERIDE 5 MG TABLET PO SCH (20:17)
[2021-02-22] MEDS: SENNOSIDES/DOCUSATE SODIUM 1 TAB TABLET PO SCH (21:18)
[2021-02-23] MEDS: ceFAZolin 1 GM VIAL IV SCH ×2 (00:08→08:36)
[2021-02-23] MEDS: HYDROmorphone 0.5 MG/0.5 ML SYRINGE IV PRN ×4 (03:45→19:54)
[2021-02-23] MEDS: ACETAMINOPHEN 325 MG TABLET PO SCH ×3 (05:42→21:39)
[2021-02-23] MEDS: 0.9 % SODIUM CHLORIDE 10 ML SYRINGE IV SCH ×3 (05:43→21:43)
--- NOTE | 2021-02-23 06:40 | Orthopedic Progress Note ---
SUBJECTIVE Subjective Patient information: Note initiated : 02/23/21 at 6:34 am Service Date, if different from initiated Date: [] Patient: Brendan Leon 70 y/o M admitted on 02/21/21 for right hip fracture. Chief Complaint: [Pain improved this AM- had fair amount of pain after surgery. His buttock is sore. Otherwise, no new issues.] Constitutional Vitals: Vital Signs Temp Pulse Resp BP Pulse Ox 98.0 F 96 H 14 131/78 95 02/23/21 03:37 02/23/21 03:37 02/23/21 03:37 02/23/21 03:37 02/23/21 03:37 Period Temp Pulse Resp BP Sys/Uribe Pulse Ox Last 24 Hr 97.3 F-99 F 80-107 12-20 105-144/65-82 85-99 Intake and Output 02/22/21 02/23/21 02/23/21 21:59 05:59 13:59 Intake Total 1815 545 Output Total 650 400 Balance 1165 145 Weight 242 lb 3.2 oz 254 lb Intake & Output: Intake & Output 02/22/21 02/23/21 02/23/21 21:59 05:59 13:59 Intake Total 1815 545 Output Total 650 400 Balance 1165 145 Weight 242 lb 3.2 oz 254 lb Intake: IV 215 345 Sodium Chloride 0.9% 1,000 ml @ 0 100 mls/hr IV .Q10H [facility] Rx#: [id number] Lactated Ringers 1,000 ml @ 75 345 mls/hr IV .[id number] [facility] Rx#: [id number] Ancef 2 gm In Dextrose 5% in 50 Water 50 ml @ 100 mls/hr IV PREOP [facility] Rx#:[id number] Oral 200 IV - Manual Only 1600 Output: Void Amount 300 400 Estimated Blood Loss 350 Other: Meal Dinner Percent of Meal Consumed 100% Feeding Ability Independent Urine Appearance Clear Urine Color Bright Yellow Bright Yellow Urine Odor Normal Stool Color Brown Stool Consistency Soft Loose # Voids 1 # Bowel Movements 1 Additional findings Additional findings: General: alert, oriented and appropriate Right hip: silver dressing in place with a small area of strikethrough. Foot warm well perfused. OBJ DATA Labs CBC & Chem 7: 02/22/21 05:45 02/22/21 05:45 Labs: Abnormal Lab Results 02/22/21 02/22/21 02/21/21 05:45 05:45 20:16 WBC 11.3 H RBC 2.95 L 3.09 L Hgb 8.9 L 9.4 L Hct 28.1 L 29.0 L RDW 19.6 H 19.2 H MPV 13.5 H 11.4 H Neut % (Auto) 79.0 H Lymph % (Auto) 14.6 L 10.7 L [place] % (Auto) 13.2 H Lymph # (Auto) 1.39 L 1.21 L [place] # (Auto) 1.26 H 1.14 H Absolute Neutrophils 8.92 H PT INR Anion Gap BUN Alkaline Phosphatase Lactate Dehydrogenase 356 H 02/21/21 02/21/21 19:13 19:13 WBC RBC Hgb Hct RDW MPV Neut % (Auto) Lymph % (Auto) [place] % (Auto) Lymph # (Auto) [place] # (Auto) Absolute Neutrophils PT 16.4 H INR 1.3 H Anion Gap 7.0 L BUN 24 H Alkaline Phosphatase 134 H Lactate Dehydrogenase Meds: Medications Acetaminophen (Acetaminophen 325 Mg Tablet) 1,000 mg PO Q8H [facility]; Protocol Last Admin: 02/23/21 05:42 Dose: 1,000 mg Documented by: Albuterol/Ipratropium (Ipratropium/Albuterol 3 Ml Ampul.Neb) 3 ml NEB QID PRN PRN Reason: shortness of breath or wheezing Last Admin: 02/22/21 18:52 Dose: 3 ml Documented by: Atorvastatin Calcium (Atorvastatin 20 Mg Tablet) 20 mg PO QHS [facility] Last Admin: 02/22/21 20:17 Dose: 20 mg Documented by: Bisacodyl (Bisacodyl 10 Mg Supp.Rect) 10 mg [place] Q2-3DAYS PRN PRN Reason: Constipation Cefazolin Sodium (Cefazolin 1 Gm Vial) 2 gm IV Q8H [facility] Stop: 02/23/21 08:01 Last Admin: 02/23/21 00:08 Dose: 2 gm Documented by: Clopidogrel Bisulfate (Clopidogrel 75 Mg Tablet) 75 mg PO DAILY [facility] Docusate Sodium (Docusate Sodium 100 Mg Capsule) 100 mg PO BID [facility] Last Admin: 02/22/21 20:17 Dose: 100 mg Documented by: Duloxetine HCl (Duloxetine 30 Mg Capsule) 60 mg PO DAILY [facility] Last Admin: 02/22/21 08:25 Dose: 60 mg Documented by: Finasteride (Finasteride 5 Mg Tablet) 5 mg PO HS [facility] Last Admin: 02/22/21 20:17 Dose: 5 mg Documented by: Furosemide (Furosemide 20 Mg Tablet) 0 mg PO BID@0800,1200 [facility] Last Admin: 02/22/21 14:17 Dose: Not Given Documented by: Gabapentin (Gabapentin 300 Mg Capsule) 600 mg PO QID [facility] Last Admin: 02/22/21 20:17 Dose: 600 mg Documented by: Hydrochlorothiazide (Hydrochlorothiazide 25 Mg Tablet) 0 mg PO DAILYP PRN PRN Reason: Edema Hydromorphone HCl (Hydromorphone 0.5 Mg/0.5 Ml Syringe) 0.25 - 0.5 mg IV Q4HP PRN; Protocol PRN Reason: Per Pain Protocol Last Admin: 02/23/21 03:45 Dose: 0.5 mg Documented by: Potassium Chloride 40 meq/ (Dextrose) 520 mls @ 130 mls/hr IV UD PRN PRN Reason: K+ = or < 3.5 Magnesium Sulfate (Magnesium Sulfate) 2 gm in 50 mls @ 50 mls/hr IV UD PRN PRN Reason: MG = or < 1.7 Lactated Ringer's (Lactated Ringers) 1,000 mls @ 75 mls/hr IV .[id number] [facility] Last Infusion: 02/23/21 00:06 Dose: Infused Documented by: Iron Carb/Multivit/[place]/Folic Acid (Multivit,Ther Iron,Ca,Fa & Min 1 Tablet) 1 tab PO DAILY [facility] Last Admin: 02/22/21 07:45 Dose: Not Given Documented by: Melatonin (Melatonin 3 Mg Tablet) 3 mg PO HSP PRN PRN Reason: Insomnia Metoprolol Succinate (Metoprolol Succinate 25 Mg Tab.Xl.24h) 25 mg PO DAILY [facility] Last Admin: 02/22/21 08:25 Dose: 25 mg Documented by: Nitroglycerin (Nitroglycerin 0.4 Mg Tab.Subl) 0.4 mg SL Q5M PRN PRN Reason: Chest Pain Ondansetron HCl (Ondansetron 4 Mg Odt Tablet) 4 mg SL Q4-6HP PRN; Protocol PRN Reason: Nausea And Vomiting Ondansetron HCl (Ondansetron 4 Mg/2 Ml Vial) 4 mg IV Q4-6HP PRN; Protocol PRN Reason: Nausea And Vomiting Oxycodone HCl (Oxycodone Hcl 5 Mg Tablet) 7.5 - 15 mg PO Q4HP PRN; Protocol PRN Reason: Per Pain Protocol Pantoprazole Sodium (Pantoprazole 40 Mg Tablet) 40 mg PO [facility] Last Admin: 02/22/21 08:16 Dose: Not Given Documented by: Polyethylene Glycol (Polyethylene Glycol 3350 17 Gm Packet) 17 gm PO DAILYP PRN PRN Reason: Constipation Potassium Chloride (Potassium Chloride 10 Meq Tablet) [address] [facility] Last Admin: 02/22/21 08:16 Dose: Not Given Documented by: Potassium Chloride (Potassium Chloride 20 Meq Packet) 40 meq PO DAILYP PRN PRN Reason: K+ < 3.5 Scopolamine (Scopolamine 1 Patch Patch) 1 patch TOPICAL PREOP PRN PRN Reason: Nausea And Vomiting Last Admin: 02/22/21 14:24 Dose: 1 patch Documented by: Senna/Docusate Sodium (Sennosides/Docusate Sodium 1 Tab Tablet) 1 tab PO [facility] Last Admin: 02/22/21 21:18 Dose: Not Given Documented by: Sodium Chloride (0.9 % Sodium Chloride 10 Ml Syringe) 10 ml IV Q8 [facility] Last Admin: 02/23/21 05:43 Dose: 10 ml Documented by: Sucralfate (Sucralfate 1 Gm Tablet) 1 gm PO QIDP PRN PRN Reason: acid reflux Tamsulosin HCl (Tamsulosin 0.4 Mg Capsule) 0.8 mg PO [facility] Last Admin: 02/22/21 20:17 Dose: 0.8 mg Documented by: Throat Lozenges (Benzocaine/Menthol 1 Lozenge) 1 lozenge PO PRN PRN PRN Reason: Sore Throat Trazodone HCl (T[facility]odone Hcl 50 Mg Tablet) [facility] Last Admin: 02/22/21 20:17 Dose: 50 mg Documented by: Zolpidem Tartrate ([facility]olpidem 5 Mg Tablet) [facility] Last Admin: 02/22/21 20:17 Dose: 10 mg Documented by: A/P Assessment and plan (1) Closed right hip fracture: Status: Acute Comment: POD1 s/p right hip niranjan arthroplasty for femoral neck fracture -- weight bearing as tolerated with posterior hip precautions x6 weeks -- PT/OT today. Has ambulated last night -- MRI of pelvis has a lesion in the left femoral neck and per radiologist recommends further evaluation. Discussed with patient this AM. Will need to follow up with primary care for this -- Oral pain medications, typical is 1-2 10mg of oxycodone at home which has been doing for years -- Regular diet -- Prophy: IS, plavix, ambulation, scd's -- Dispo: will see how he does with therapy- lives alone so may need a short stay at a rehab facility. Qualifiers: Encounter type: initial encounter Qualified Code(s): S72.001A - Fracture of unspecified part of neck of right femur, initial encounter for closed fracture Time Spent With Patient Time: Total time spent is greater than 50% in coordination of care (as documented) at patient's floor/unit and/or counseling patient:
--- NOTE | 2021-02-23 06:49 | XRay Report ---
CLINICAL INFORMATION: Follow-up CHF COMPARISON: 02/21/2021 FINDINGS: Cardiomegaly is decreased. Mediastinum is unremarkable. The pulmonary vessels returned to normal caliber on today's study. Moderate vague patchy infiltrate has developed in the right base. There is minor atelectasis in the left base. Small right pleural effusion noted IMPRESSION: Moderate patchy infiltrate involving the right base. Interval resolution of CHF Interpreted and Authenticated by: Robb Blevins 02/23/21
[2021-02-23] MEDS: PANTOPRAZOLE 40 MG TABLET PO SCH (07:05)
[2021-02-23] MEDS: FUROSEMIDE 20 MG TABLET PO SCH ×2 (07:48→12:31)
[2021-02-23] MEDS: POTASSIUM CHLORIDE 10 MEQ TABLET PO SCH (07:48)
--- NOTE | 2021-02-23 07:48 | Operative Note ---
DATE OF OPERATION: 02/22/2021 PREOPERATIVE DIAGNOSIS: Right femoral neck fracture. POSTOPERATIVE DIAGNOSIS: Right femoral neck fracture. PROCEDURE PERFORMED: Right press-fit niranjan hip arthroplasty. SURGEON: Ian Higgins M.D. ANTIQUE JEWELRY REPAIRER: Sunday Peterson PA-C. This providers expertise and technical skill were required throughout the case. The PA assisted with preoperative coordination, intraoperative retraction, wound closure, and dressing and splint application, as well as postoperative documentation and care coordination. ANESTHESIA: General. INTRAVENOUS FLUIDS: 1600 mL lactate Ringer's. ESTIMATED BLOOD LOSS: 100 mL. ANTIBIOTICS: 2 grams Ancef. IMPLANTS: Actis size 8 stem with zero offset neck standard with a 54 head ball. INTRAOPERATIVE COMPLICATIONS: None apparent. PATHOLOGY/LAB: None. OPERATIVE FINDINGS: Femoral neck fracture. INDICATIONS FOR PROCEDURE: The patient is a 62-year-old male who has had hip pain for approximately a month, with initial x-rays found to be negative for fracture. Repeat x-rays demonstrated an acute subcapital femoral neck fracture with an MRI that was indicative of this as well; however, there is no pathological process ongoing about the femoral neck itself that was appreciated. This a bit unusual for a femoral neck fracture to occur in this fashion. However, he is using two crutches at this point. He also had a steroid injection approximately 2 days prior to presenting for continued pain. I discussed at length with him regarding treatment options, operative and nonoperative treatment. I discussed doing a hip arthroplasty for femoral neck fracture is the typical treatment. I do not think that ORIF with screws would be the choice for this fracture pattern as on x-rays appears displaced. We had a lengthy discussion regarding how to proceed with the conclusion that we will proceed with operative intervention with a right hip hemiarthroplasty. I could place antibiotic beads to decrease the risk for infection given the recent injection steroid. He understands and wants to proceed in that fashion. DESCRIPTION OF PROCEDURE: Patient was met in the preoperative holding area where site was verified and marked with the patient's input. He was brought to the operating room where he underwent successful endotracheal anesthesia. He was placed in the lateral decubitus position with the right side up. His hip was cleaned with chlorhexidine wipes and then prepped and draped in the usual sterile fashion with ChloraPrep. Surgical timeout was performed to verify patient's identity, correct procedure being performed, and correct extremity being operated on. Everybody was in agreement. I created approximately a 12-14 cm incision over the mid aspect of the proximal femur traversing the middle and posterior third of the greater trochanter, angling posteriorly. Skin was sharply incised. Hemostasis was obtained with electrocautery device down to the tensor fascia muscle as well as the IT band. This was incised sharply. The bursa was excised. A self-retaining retractor was placed. I elevated the external rotators off the piriformis fossa and tagged the piriformis itself. This exposed the capsule. Capsule was then incised in line with the femoral neck. The ends were tagged.. The femoral neck cut was made at 15 mm with an oscillating saw. Once this was complete, the head was removed. The femoral neck was exposed utilizing a spinner box, canal finder, lateralizer, and then broached up to a size 8 with good rotational stability. I was happy with the overall fit. The calcar was reamed flush and I placed a standard neck trial with a 54 head ball and reduced the joint. This restored his length as well as stability with hip flexion and external rotation approximately 60 degrees, got to full extension. This restored his normal anatomy. It was a bit tight to start with. Once this was complete, the implants were trialed, and implants were removed. We irrigated the wound out again, IrriSept was utilized to set in the wound multiple times throughout the case as well as TXA into the wound given that he was on Plavix and a bit oozy. He also had IV TXA. Once this was completed, we irrigated this out, placed our final stem implant with good stability and matched her version to the posterior cortex of the femoral neck. The head ball was impacted and reduced with good stability again. The capsulotomy was then closed with #[address] antibiotic beads deep in the joint as well. The IT band was closed with #1 Vicryl at the level of the musculotendinous junction and subsequently run this proximally. A Stratafix was utilized to close the IT band itself and a running 4-0 Vicryl suture as well. The subcutaneous tissue was closed with layers with running 2-0 Vicryl, subcutaneous with 3-0 Vicryl and the skin closed with leoncio. The hip was then cleaned and dried. We placed a silver dressing as well as an abduction pillow. He was awoken from anesthesia and transferred to PACU in stable condition. POSTOPERATIVE PLAN: The patient will be admitted back to the floor for postoperative recovery. Weightbearing as tolerated. DLW:ana Job ID: [id number] Doc ID: [id number] Ian Higgins MD [facility]
[2021-02-23 08:17] LABS: Basophils # (Auto) 0.01 K/mcL (0.00-0.20); Basophils % (Auto) 0.1 % (0.0-2.0); Eosinophils # (Auto) 0 K/mcL (0.00-0.70); Eosinophils % (Auto) 0 % (0.0-7.0); Hematocrit 25.2 % (41.0-55.0); Lymphocytes % (Auto) 10.3 % (15.0-49.0); Mean Cell Volume 94.7 fL (80.0-100.0); Mean Corpuscular HGB Conc 31.7 g/dL (31.0-36.0); Mean Platelet Volume 12.9 fL (7.4-10.4); Monocytes # (Auto) 1.63 K/mcL (0.10-0.90); Monocytes % (Auto) 15.3 % (1.0-12.0); Neutrophils % (Auto) 74.3 % (38.0-78.0); Platelet Count 221 K/mcL (140-440); RBC 2.66 M/mcL (4.50-5.90); Red Cell Distribution Width 19.6 % (11.5-14.5); WBC 10.6 K/mcL (4.5-11.0)
[2021-02-23 08:24] LABS: ALT/SGPT 14 U/L (<40); AST/SGOT 23 U/L (<40); Albumin 3.6 gm/dL (3.2-5.2); Albumin/Globulin Ratio 1.2 (1.0-2.3); Alkaline Phosphatase 114 U/L (39-117); Bilirubin,Direct 0.2 mg/dL (<0.3); Bilirubin,Total 0.7 mg/dL (0.1-1.0); Blood Urea Nitrogen 21 mg/dL (8-23); Calcium 8.8 mg/dL (8.6-10.4); Carbon Dioxide 29 mmol/L (22-30); Chloride 96 mmol/L (96-108); Globulin 2.9 gm/dL (2.2-3.7); Glomerular Filtration Rate 91; Glucose 113 mg/dL (70-105); Lactate Dehydrogenase 219 U/L (135-225); Phosphorous 3.7 mg/dL (2.5-4.5); Triglycerides 66 mg/dL (<150); Uric Acid 4.9 mg/dL (2.5-8.0)
[2021-02-23] MEDS: CLOPIDOGREL 75 MG TABLET PO SCH (08:36)
[2021-02-23] MEDS: MULTIVIT,THER IRON,CA,FA & MIN 1 TABLET PO SCH (08:36)
[2021-02-23] MEDS: METOPROLOL SUCCINATE 25 MG TAB.XL.24H PO SCH (08:36)
[2021-02-23] MEDS: GABAPENTIN 300 MG CAPSULE PO SCH ×4 (08:36→21:43)
[2021-02-23] MEDS: DOCUSATE SODIUM 100 MG CAPSULE PO SCH ×2 (08:36→21:41)
[2021-02-23] MEDS: oxyCODONE HCL 5 MG TABLET PO PRN ×3 (08:46→21:41)
[2021-02-23] MEDS: DULoxetine 30 MG CAPSULE PO SCH (10:46)
--- NOTE | 2021-02-23 12:13 | Internal Med Progress Note ---
SUBJECTIVE Subjective Patient information: Note initiated : 02/23/21 at 12:11 pm Service Date, if different from initiated Date: [] Patient: Brendan Leon 70 y/o M admitted on 02/21/21 for right hip fracture. Chief Complaint: [] Interval history: Mr. Leon is a 70 year old M who presented to the ER following 1 month onset of right hip pain without specific precipitating event. Patient was evaluated a month ago with a negative hip imaging. Ortho next 30 days pain continue to worsen with progressive difficulty ambulating. He was evaluated at the pain clinic and underwent right knee and right hip steroid shot and underwent a repeat imaging that was consistent with right hip fracture. He was subsequently returned to the ER for evaluation. Orthopedics was consulted and recommended admission for operative intervention. Subsequently hospitalist service was consulted. At the time of my evaluation patient is alert and oriented. He was able to answer most of the questions. He takes chronic pain medication and is a very anxious personality. Denies trauma or fall and has been wondering what might have caused the fracture. Orthopedics ordered MRI in the morning to exclude bony pathology. Pain is reasonably controlled on pain medication. He denies fever, redness, chills, diarrhea, abdominal pain 02/22-patient due for surgical intervention today. MRI hip pending. No overnight events. Hemoglobin 8.9, stable hemodynamics and vitals. Pain in good control. Will review postop. 02/23-patient doing well. Postop day 1. Hemoglobin 8. No oozing or bleeding around the surgical site. Restarted on home medications. Pain in good control. Will undergo pain pump refill today by interventional pain clinic. No family at bedside. Discharge planning per orthopedics and case management Constitutional Vitals: Vital Signs Temp Pulse Resp BP Pulse Ox 98.4 F 84 18 142/78 94 02/23/21 07:45 02/23/21 07:45 02/23/21 07:45 02/23/21 07:45 02/23/21 07:45 Period Temp Pulse Resp BP Sys/Uribe Pulse Ox Last 24 Hr 98.0 F-99 F 84-107 12-20 105-144/65-82 85-99 Intake and Output 02/22/21 02/23/21 02/23/21 21:59 05:59 13:59 Intake Total 1815 545 Output Total 650 400 300 Balance 1165 145 -300 Weight 109.86 kg 115.212 kg Alert oriented Nonlabored breathing No anxiety Nondistended abdomen Intake & Output: Intake & Output 02/22/21 02/23/21 02/23/21 21:59 05:59 13:59 Intake Total 1815 545 Output Total 650 400 300 Balance 1165 145 -300 Weight 109.86 kg 115.212 kg Intake: IV 215 345 Sodium Chloride 0.9% 1,000 ml @ 0 100 mls/hr IV .Q10H [facility]OHIT Rx#: [id number] Lactated Ringers 1,000 ml @ 75 345 mls/hr IV .[id number] ROHIT Rx#: [id number] Ancef 2 gm In Dextrose 5% in 50 Water 50 ml @ 100 mls/hr IV PREOP ROHIT Rx#:[id number] Oral 200 IV - Manual Only 1600 Output: Void Amount 300 400 300 Estimated Blood Loss 350 Other: Meal Dinner Percent of Meal Consumed 100% Feeding Ability Independent Urine Appearance Clear Urine Color Bright Yellow Bright Yellow Urine Odor Normal Stool Color Brown Stool Consistency Soft Loose # Voids 1 5 # Bowel Movements 1 OBJ DATA Labs CBC & Chem 7: 02/23/21 07:19 02/23/21 07:19 Labs: Abnormal Lab Results 02/23/21 02/23/21 02/22/21 07:19 07:19 05:45 WBC RBC 2.66 L Hgb 8.0 L Hct 25.2 L RDW 19.6 H MPV 12.9 H Neut % (Auto) Lymph % (Auto) 10.3 L Beaver % (Auto) 15.3 H Lymph # (Auto) 1.10 L Beaver # (Auto) 1.63 H Absolute Neutrophils PT INR Anion Gap BUN Glucose 113 H Alkaline Phosphatase Lactate Dehydrogenase 356 H 02/22/21 02/21/21 02/21/21 05:45 20:16 19:13 WBC 11.3 H RBC 2.95 L 3.09 L Hgb 8.9 L 9.4 L Hct 28.1 L 29.0 L RDW 19.6 H 19.2 H MPV 13.5 H 11.4 H Neut % (Auto) 79.0 H Lymph % (Auto) 14.6 L 10.7 L Beaver % (Auto) 13.2 H Lymph # (Auto) 1.39 L 1.21 L Beaver # (Auto) 1.26 H 1.14 H Absolute Neutrophils 8.92 H PT INR Anion Gap 7.0 L BUN 24 H Glucose Alkaline Phosphatase 134 H Lactate Dehydrogenase 02/21/21 19:13 WBC RBC Hgb Hct RDW MPV Neut % (Auto) Lymph % (Auto) Beaver % (Auto) Lymph # (Auto) Beaver # (Auto) Absolute Neutrophils PT 16.4 H INR 1.3 H Anion Gap BUN Glucose Alkaline Phosphatase Lactate Dehydrogenase Meds: Medications Acetaminophen (Acetaminophen 325 Mg Tablet) 1,000 mg PO Q8H PENDING SALE TO [facility]; Protocol Last Admin: 02/23/21 05:42 Dose: 1,000 mg Documented by: Albuterol/Ipratropium (Ipratropium/Albuterol 3 Ml Ampul.Neb) 3 ml NEB QID PRN PRN Reason: shortness of breath or wheezing Last Admin: 02/22/21 18:52 Dose: 3 ml Documented by: Atorvastatin Calcium (Atorvastatin 20 Mg Tablet) 20 mg PO QHS PENDING SALE TO [facility] Last Admin: 02/22/21 20:17 Dose: 20 mg Documented by: Bisacodyl (Bisacodyl 10 Mg Supp.Rect) 10 mg OK Q2-3DAYS PRN PRN Reason: Constipation Clopidogrel Bisulfate (Clopidogrel 75 Mg Tablet) 75 mg PO DAILY [facility]END[facility] SALE TO [facility] Last Admin: 02/23/21 08:36 Dose: 75 mg Documented by: Docusate Sodium (Docusate Sodium 100 Mg Capsule) 100 mg PO BID PENDING SALE TO [facility] Last Admin: 02/23/21 08:36 Dose: 100 mg Documented by: Duloxetine HCl (Duloxetine 30 Mg Capsule) 60 mg PO DAILY [facility] Last Admin: 02/23/21 10:46 Dose: 60 mg Documented by: Finasteride (Finasteride 5 Mg Tablet) 5 mg PO [facility] Last Admin: 02/22/21 20:17 Dose: 5 mg Documented by: Furosemide (Furosemide 20 Mg Tablet) 0 mg PO BID@0800,1200 PENDING SALE TO [facility] Last Admin: 02/23/21 07:48 Dose: 20 mg Documented by: Gabapentin (Gabapentin 300 Mg Capsule) 600 mg PO QID PEND[facility] SALE TO [facility] Last Admin: 02/23/21 08:36 Dose: 600 mg Documented by: Hydrochlorothiazide (Hydrochlorothiazide 25 Mg Tablet) 0 mg PO DAILYP PRN PRN Reason: Edema Hydromorphone HCl (Hydromorphone 0.5 Mg/0.5 Ml Syringe) 0.25 - 0.5 mg IV Q4HP PRN; Protocol PRN Reason: Per Pain Protocol Last Admin: 02/23/21 07:47 Dose: 0.25 mg Documented by: Potassium Chloride 40 meq/ (Dextrose) 520 mls @ 130 mls/hr IV UD PRN PRN Reason: K+ = or < 3.5 Magnesium Sulfate (Magnesium Sulfate) 2 gm in 50 mls @ 50 mls/hr IV UD PRN PRN Reason: MG = or < 1.7 Lactated Ringer's (Lactated Ringers) 1,000 mls @ 75 mls/hr IV .[id number] PENDING SALE TO [facility] Last Infusion: 02/23/21 00:06 Dose: Infused Documented by: Iron Carb/Multivit/Nurse Reviewer/Folic Acid (Multivit,Ther Iron,Ca,Fa & Min 1 Tablet) 1 tab PO DAILY [facility] Last Admin: 02/23/21 08:36 Dose: 1 tab Documented by: Melatonin (Melatonin 3 Mg Tablet) 3 mg PO HSP PRN PRN Reason: Insomnia Metoprolol Succinate (Metoprolol Succinate 25 Mg Tab.Xl.24h) 25 mg PO DAILY [facility] Last Admin: 02/23/21 08:36 Dose: 25 mg Documented by: Nitroglycerin (Nitroglycerin 0.4 Mg Tab.Subl) 0.4 mg SL Q5M PRN PRN Reason: Chest Pain Ondansetron HCl (Ondansetron 4 Mg Odt Tablet) 4 mg SL Q4-6HP PRN; Protocol PRN Reason: Nausea And Vomiting Ondansetron HCl (Ondansetron 4 Mg/2 Ml Vial) 4 mg IV Q4-6HP PRN; Protocol PRN Reason: Nausea And Vomiting Last Admin: 02/23/21 08:08 Dose: 4 mg Documented by: Oxycodone HCl (Oxycodone Hcl 5 Mg Tablet) 7.5 - 15 mg PO Q4HP PRN; Protocol PRN Reason: Per Pain Protocol Last Admin: 02/23/21 08:46 Dose: 7.5 mg Documented by: Pantoprazole Sodium ([facility]ant[facility] 40 Mg Tablet) [facility] Last Admin: 02/23/21 07:05 Dose: 40 mg Documented by: Polyethylene Glycol (Polyethylene Glycol 3350 17 Gm Packet) 17 gm PO DAILYP PRN PRN Reason: Constipation Potassium Chloride (Potassium Chloride 10 Meq Tablet) 30 [facility] Last Admin: 02/23/21 07:48 Dose: 30 meq Documented by: Potassium Chloride (Potassium Chloride 20 Meq Packet) 40 meq PO DAILYP PRN PRN Reason: K+ < 3.5 Scopolamine (Scopolamine 1 Patch Patch) 1 patch TOPICAL PREOP PRN PRN Reason: Nausea And Vomiting Last Admin: 02/22/21 14:24 Dose: 1 patch Documented by: Senna/Docusate Sodium (Sennosides/Docusate Sodium 1 Tab Tablet) 1 tab PO [facility] Last Admin: 02/22/21 21:18 Dose: Not Given Documented by: Sodium Chloride (0.9 % Sodium Chloride 10 Ml Syringe) 10 ml IV Q8 PENDING SALE TO [facility] Last Admin: 02/23/21 05:43 Dose: 10 ml Documented by: Sucralfate (Sucralfate 1 Gm Tablet) 1 gm PO QIDP PRN PRN Reason: acid reflux Tamsulosin HCl (Tamsulosin 0.4 Mg Capsule) 0.8 mg PO [facility] Last Admin: 02/22/21 20:17 Dose: 0.8 mg Documented by: Throat Lozenges (Benzocaine/Menthol 1 Lozenge) 1 lozenge PO PRN PRN PRN Reason: Sore Throat Trazodone HCl (Trazodone Hcl 50 Mg Tablet) [facility] Last Admin: 02/22/21 20:17 Dose: 50 mg Documented by: Zolpidem Tartrate (Zolpidem 5 Mg Tablet) [facility] Last Admin: 02/22/21 20:17 Dose: 10 mg Documented by: A/P Narrative A/P Narrative: * Right hip fracture-scheduled for surgery today * Pain management on as needed opioids Hospitalist consult * History of CAD stable on home dose Plavix, statin, beta-rivera/nitroglycerin * History of CHF currently well compensated continue beta-rivera/diuretic * Chronic pain on oxycodone, pain pump will be refilled by interventional pain clinic today. As needed IV opioids for breakthrough pain * History of hypertension stable on home dose beta-rivera/thiazide * BPH on tamsulosin/finasteride * Neuropathy continue gabapentin * Anxiety disorder continue oxygen/BuSpar * History of COPD continue bronchodilators, supplemental oxygen * History of PVD continue PPI/sucralfate * Prophylaxis will be as per orthopedics Plan * Continue postop care per orthopedics * Continue pre-existing medical condition management as above * PT OT/nutrition support/incentive spirometer use * Discharge planning per case management Time Spent With Patient Time: Total time spent is greater than 50% in coordination of care (as documented) at patient's floor/unit and/or counseling patient: QUALITY VTE Deep Vein Thrombosis/Pulmonary Embolism Present on Admission: No
--- NOTE | 2021-02-23 16:28 | History and Physical Report ---
DATE OF ADMISSION: 02/21/2021 CHIEF COMPLAINT: Chronic pain. HISTORY: Mr. Whiting is a 70-year-old gentleman, who I am seeing while admitted to [facility], room 129. I normally see him at [facility] for intrathecal pump refills. The patient has an intrathecal medication delivery system, which delivers morphine at a dose of 1.2920 mg per day. The patient is due for a pump refill at this time. The patient is presently hospitalized for a right hip fracture and underwent hemiarthroplasty on 02/22/2021. As far as his chronic pain goes, he has been doing well, and his intrathecal pump medication is effective in managing his pain to a reasonable level that he can maintain his function, independence, independence and activity level. PHYSICAL EXAMINATION: GENERAL: On brief exam, the patient is lying in the hospital bed. He is alert, oriented, and articulate. He is not sedated. HEART: Regular rate and rhythm without murmur. LUNGS: Clear. ABDOMEN: Soft and nontender. Intrathecal pump is located in the right lower quadrant of the abdomen. It is easily palpated without complaint of tenderness from the patient. There is no overlying rash or erythema. EXTREMITIES: Lower extremities, the patient has compression stocking on. IMPRESSION: 1. Chronic pain. 2. Chronic low back pain with intrathecal pump in place. 3. Acute right hip fracture, status post hemiarthroplasty of the right hip. PLAN: Risks and potential benefits of intrathecal pump refill were discussed with the patient and he requested to proceed. The patient states that his medication regimen is continuing to provide pain relief that has been official. The patient denies significant side effects. SUMMARY OF PROCEDURE: The patient's pump site was prepped and draped in usual sterile fashion. The patient's skin was prepped with Betadine. Utilizing a 22-gauge Rios needle with sterile technique, the pump reservoir was then accessed on the first pass without difficulty. The remaining medicine was then aspirated out of the pump. The pump was then filled in an incremental fashion as listed below. Some solution was wasted to the filter and tubing and not included in the delivered volume. The pump was then re-programmed to indicate the drug concentration, daily dose, and alarm date noted. The patient's pump medication is preservative-free morphine. Remaining reservoir volume removed today which correlated with telemetry is 5.6 mL. The current infusion rate is 1.2920 mg per day. The current concentration of the drug (Morphine) is 5.0 mg/mL. A total of 20 mL was filled in the patient's intrathecal pump. The patient's medication concentration and dosing is unchanged. The patient tolerated the intrathecal pump refill without difficulty. As noted, his pump was re-programmed. The patient will be due to return to clinic by 05/03 for pump refill. He will follow up with the clinic sooner as needed. VO:kenia Job ID: [id number] Doc ID: [id number] MONY Kuo
[2021-02-23] MEDS ORDERED: CALCIUM CARBONATE 500 MG TAB.CHEW CHEWED PRN (17:07)
[2021-02-23] MEDS: SUCRALFATE 1 GM TABLET PO PRN ×2 (17:20→22:58)
[2021-02-23] MEDS: LACTATED RINGERS 1,000 ML IV SCH (20:03)
[2021-02-23] MEDS: FINASTERIDE 5 MG TABLET PO SCH (21:39)
[2021-02-23] MEDS: ATORVASTATIN 20 MG TABLET PO SCH (21:39)
[2021-02-23] MEDS: SENNOSIDES/DOCUSATE SODIUM 1 TAB TABLET PO SCH (21:40)
[2021-02-23] MEDS: ZOLPIDEM 5 MG TABLET PO SCH (21:41)
[2021-02-23] MEDS: TAMSULOSIN 0.4 MG CAPSULE PO SCH (21:42)
[2021-02-23] MEDS: traZODone HCL 50 MG TABLET PO SCH (21:43)
[2021-02-24] MEDS: HYDROmorphone 0.5 MG/0.5 ML SYRINGE IV PRN ×3 (00:34→11:02)
[2021-02-24] MEDS: 0.9 % SODIUM CHLORIDE 10 ML SYRINGE IV SCH (04:24)
[2021-02-24] MEDS: oxyCODONE HCL 5 MG TABLET PO PRN (06:15)
[2021-02-24] MEDS: ACETAMINOPHEN 325 MG TABLET PO SCH (06:16)
--- NOTE | 2021-02-24 06:33 | Orthopedic Progress Note ---
SUBJECTIVE Subjective Patient information: Note initiated : 02/24/21 at 6:28 am Service Date, if different from initiated Date: [] Patient: Brendan Leon 70 y/o M admitted on 02/21/21 for right hip fracture. Chief Complaint: [Had some pain control issues overnight but better this AM. No shortness of breath/chest pain. No new concerns.] Constitutional Vitals: Vital Signs Temp Pulse Resp BP Pulse Ox 97.3 F 89 14 113/69 94 02/24/21 04:00 02/24/21 04:00 02/24/21 04:00 02/24/21 04:00 02/24/21 04:00 Period Temp Pulse Resp BP Sys/Uribe Pulse Ox Last 24 Hr 97.3 F-98.7 F 84-95 14-18 106-142/64-79 94-97 Intake and Output 02/23/21 02/24/21 02/24/21 21:59 05:59 13:59 Intake Total 700 Balance 700 Weight 243 lb 4.8 oz Intake & Output: Intake & Output 02/23/21 02/24/21 02/24/21 21:59 05:59 13:59 Intake Total 700 Balance 700 Weight 243 lb 4.8 oz Intake: Oral 700 Other: # Voids 1 1 Additional findings Additional findings: Genera; alert oriented and appropriate Right hip: dressing clean, dry and intact. no new strikethrough. Foot warm well perfused. OBJ DATA Labs CBC & Chem 7: 02/23/21 07:19 02/23/21 07:19 Labs: Abnormal Lab Results 02/23/21 02/23/21 02/22/21 07:19 07:19 05:45 WBC RBC 2.66 L Hgb 8.0 L Hct 25.2 L RDW 19.6 H MPV 12.9 H Neut % (Auto) Lymph % (Auto) 10.3 L [place] % (Auto) 15.3 H Lymph # (Auto) 1.10 L [place] # (Auto) 1.63 H Absolute Neutrophils PT INR Anion Gap BUN Glucose 113 H Alkaline Phosphatase Lactate Dehydrogenase 356 H 02/22/21 02/21/21 02/21/21 05:45 20:16 19:13 WBC 11.3 H RBC 2.95 L 3.09 L Hgb 8.9 L 9.4 L Hct 28.1 L 29.0 L RDW 19.6 H 19.2 H MPV 13.5 H 11.4 H Neut % (Auto) 79.0 H Lymph % (Auto) 14.6 L 10.7 L [place] % (Auto) 13.2 H Lymph # (Auto) 1.39 L 1.21 L [place] # (Auto) 1.26 H 1.14 H Absolute Neutrophils 8.92 H PT INR Anion Gap 7.0 L BUN 24 H Glucose Alkaline Phosphatase 134 H Lactate Dehydrogenase 02/21/21 19:13 WBC RBC Hgb Hct RDW MPV Neut % (Auto) Lymph % (Auto) [place] % (Auto) Lymph # (Auto) [place] # (Auto) Absolute Neutrophils PT 16.4 H INR 1.3 H Anion Gap BUN Glucose Alkaline Phosphatase Lactate Dehydrogenase Meds: Medications Acetaminophen (Acetaminophen 325 Mg Tablet) 1,000 mg PO Q8H [facility]; Protocol Last Admin: 02/24/21 06:16 Dose: 1,000 mg Documented by: Albuterol/Ipratropium (Ipratropium/Albuterol 3 Ml Ampul.Neb) 3 ml NEB QID PRN PRN Reason: shortness of breath or wheezing Last Admin: 02/22/21 18:52 Dose: 3 ml Documented by: Atorvastatin Calcium (Atorvastatin 20 Mg Tablet) 20 mg PO QHS [facility] Last Admin: 02/23/21 21:39 Dose: 20 mg Documented by: Bisacodyl (Bisacodyl 10 Mg Supp.Rect) 10 mg HI Q2-3DAYS PRN PRN Reason: Constipation Calcium Carbonate/Glycine (Calcium Carbonate 500 Mg Tab.Chew) 1,000 mg CHEWED Q4HP PRN PRN Reason: Dyspepsia Clopidogrel Bisulfate (Clopidogrel 75 Mg Tablet) 75 mg PO DAILY [facility] Last Admin: 02/23/21 08:36 Dose: 75 mg Documented by: Docusate Sodium (Docusate Sodium 100 Mg Capsule) 100 mg PO BID [facility] Last Admin: 02/23/21 21:41 Dose: 100 mg Documented by: Duloxetine HCl (Duloxetine 30 Mg Capsule) 60 mg PO DAILY [facility] Last Admin: 02/23/21 10:46 Dose: 60 mg Documented by: Finasteride (Finasteride 5 Mg Tablet) 5 mg PO HS [facility] Last Admin: 02/23/21 21:39 Dose: 5 mg Documented by: Furosemide (Furosemide 20 Mg Tablet) 0 mg PO BID@0800,1200 [facility] Last Admin: 02/23/21 12:31 Dose: 20 mg Documented by: Gabapentin (Gabapentin 300 Mg Capsule) 600 mg PO QID [facility] Last Admin: 02/23/21 21:43 Dose: 600 mg Documented by: Hydrochlorothiazide (Hydrochlorothiazide 25 Mg Tablet) 0 mg PO DAILYP PRN PRN Reason: Edema Hydromorphone HCl (Hydromorphone 0.5 Mg/0.5 Ml Syringe) 0.25 - 0.5 mg IV Q4HP PRN; Protocol PRN Reason: Per Pain Protocol Last Admin: 02/24/21 00:34 Dose: 0.5 mg Documented by: Potassium Chloride 40 meq/ (Dextrose) 520 mls @ 130 mls/hr IV UD PRN PRN Reason: K+ = or < 3.5 Magnesium Sulfate (Magnesium Sulfate) 2 gm in 50 mls @ 50 mls/hr IV UD PRN PRN Reason: MG = or < 1.7 Iron Carb/Multivit/Log Chain Worker/Folic Acid (Multivit,Ther Iron,Ca,Fa & Min 1 Tablet) 1 tab PO DAILY [facility] Last Admin: 02/23/21 08:36 Dose: 1 tab Documented by: Melatonin (Melatonin 3 Mg Tablet) 3 mg PO HSP PRN PRN Reason: Insomnia Metoprolol Succinate (Metoprolol Succinate 25 Mg Tab.Xl.24h) 25 mg PO DAILY [facility] Last Admin: 02/23/21 08:36 Dose: 25 mg Documented by: Nitroglycerin (Nitroglycerin 0.4 Mg Tab.Subl) 0.4 mg SL Q5M PRN PRN Reason: Chest Pain Ondansetron HCl (Ondansetron 4 Mg Odt Tablet) 4 mg SL Q4-6HP PRN; Protocol PRN Reason: Nausea And Vomiting Ondansetron HCl (Ondansetron 4 Mg/2 Ml Vial) 4 mg IV Q4-6HP PRN; Protocol PRN Reason: Nausea And Vomiting Last Admin: 02/23/21 08:08 Dose: 4 mg Documented by: Oxycodone HCl (Oxycodone Hcl 5 Mg Tablet) 7.5 - 15 mg PO Q4HP PRN; Protocol PRN Reason: Per Pain Protocol Last Admin: 02/24/21 06:15 Dose: 15 mg Documented by: Pantoprazole Sodium (Pantoprazole 40 Mg Tablet) [facility] Last Admin: 02/23/21 07:05 Dose: 40 mg Documented by: Polyethylene Glycol (Polyethylene Glycol 3350 17 Gm Packet) 17 gm PO DAILYP PRN PRN Reason: Constipation Potassium Chloride (Potassium Chloride 10 Meq Tablet) [facility] Last Admin: 02/23/21 07:48 Dose: 30 meq Documented by: Potassium Chloride (Potassium Chloride 20 Meq Packet) 40 meq PO DAILYP PRN PRN Reason: K+ < 3.5 Scopolamine (Scopolamine 1 Patch Patch) 1 patch TOPICAL PREOP PRN PRN Reason: Nausea And Vomiting Last Admin: 02/22/21 14:24 Dose: 1 patch Documented by: Senna/Docusate Sodium (Sennosides/Docusate Sodium 1 Tab Tablet) 1 tab PO [facility] Last Admin: 02/23/21 21:40 Dose: 1 tab Documented by: Sodium Chloride (0.9 % Sodium Chloride 10 Ml Syringe) 10 ml IV Q8 [facility] Last Admin: 02/24/21 04:24 Dose: 10 ml Documented by: Sucralfate (Sucralfate 1 Gm Tablet) 1 gm PO QIDP PRN PRN Reason: acid reflux Last Admin: 02/23/21 22:58 Dose: 1 gm Documented by: Tamsulosin HCl (Tamsulosin 0.4 Mg Capsule) 0.8 mg PO [facility] Last Admin: 02/23/21 21:42 Dose: 0.8 mg Documented by: Throat Lozenges (Benzocaine/Menthol 1 Lozenge) 1 lozenge PO PRN PRN PRN Reason: Sore Throat Trazodone HCl (Trazodone Hcl 50 Mg Tablet) [facility] Last Admin: 02/23/21 21:43 Dose: 50 mg Documented by: Zolpidem Tartrate (Zolpidem 5 Mg Tablet) [facility] Last Admin: 02/23/21 21:41 Dose: 10 mg Documented by: A/P Assessment and plan (1) Closed right hip fracture: Status: Acute Comment: POD2 s/p right hip niranjan arthroplasty for femoral neck fracture -- weight bearing as tolerated with posterior hip precautions x6 weeks with PT/OT -- Oral pain medications, typical is 1-2 10mg of oxycodone at home which has been doing for years, has been supplementing IV pain meds here which I discussed with him today should try to be stopped today. Should ensure he is getting muscle relaxer, tylenol on a regular basis. -- Regular diet -- Prophy: IS, plavix, ambulation, scd's -- Dispo: plan is for SNF. Ortho ok with d/c. Will need follow up with ortho in 10-13 days, weight bearing as tolerated with posterior hip precautions, ok to shower with dressing in place- leave in place until follow up with orthopedics unless water gets under dressing then remove, pain rx in chart. WIll need f/u with PCM for medical issues but also f/u of MRI scan of left hip as recommended that he has further studies to evaluate. Qualifiers: Encounter type: initial encounter Qualified Code(s): S72.001A - Fracture of unspecified part of neck of right femur, initial encounter for closed fracture Time Spent With Patient Time: Total time spent is greater than 50% in coordination of care (as documented) at patient's floor/unit and/or counseling patient:
[2021-02-24] MEDS: PANTOPRAZOLE 40 MG TABLET PO SCH (07:09)
[2021-02-24] MEDS: FUROSEMIDE 20 MG TABLET PO SCH ×2 (08:05→12:00)
[2021-02-24] MEDS: POTASSIUM CHLORIDE 10 MEQ TABLET PO SCH (08:05)
[2021-02-24] MEDS: GABAPENTIN 300 MG CAPSULE PO SCH ×2 (08:06→12:00)
[2021-02-24] MEDS: MULTIVIT,THER IRON,CA,FA & MIN 1 TABLET PO SCH (08:06)
[2021-02-24] MEDS: METOPROLOL SUCCINATE 25 MG TAB.XL.24H PO SCH (08:06)
[2021-02-24] MEDS: DULoxetine 30 MG CAPSULE PO SCH (08:06)
[2021-02-24] MEDS: DOCUSATE SODIUM 100 MG CAPSULE PO SCH (08:06)
[2021-02-24] MEDS: CLOPIDOGREL 75 MG TABLET PO SCH (08:06)
[2021-02-24 08:17] LABS: Basophils # (Auto) 0.04 K/mcL (0.00-0.20); Basophils % (Auto) 0.4 % (0.0-2.0); Eosinophils # (Auto) 0.01 K/mcL (0.00-0.70); Eosinophils % (Auto) 0.1 % (0.0-7.0); Hemoglobin 7.5 g/dL (13.5-16.5); Lymphocytes # (Auto) 1.79 K/mcL (1.50-4.80); Lymphocytes % (Auto) 17.8 % (15.0-49.0); Mean Cell Volume 93.9 fL (80.0-100.0); Mean Corpuscular HGB Conc 32.6 g/dL (31.0-36.0); Mean Platelet Volume 13.4 fL (7.4-10.4); Monocytes # (Auto) 1.99 K/mcL (0.10-0.90); Monocytes % (Auto) 19.8 % (1.0-12.0); Neutrophils % (Auto) 61.9 % (38.0-78.0); Platelet Count 174 K/mcL (140-440); RBC 2.45 M/mcL (4.50-5.90); Red Cell Distribution Width 19.8 % (11.5-14.5); WBC 10.1 K/mcL (4.5-11.0)
[2021-02-24 08:21] LABS: ALT/SGPT 11 U/L (<40); AST/SGOT 20 U/L (<40); Albumin 3.4 gm/dL (3.2-5.2); Albumin/Globulin Ratio 1.3 (1.0-2.3); Alkaline Phosphatase 99 U/L (39-117); Bilirubin,Direct 0.2 mg/dL (<0.3); Bilirubin,Total 0.7 mg/dL (0.1-1.0); Blood Urea Nitrogen 16 mg/dL (8-23); Calcium 8.8 mg/dL (8.6-10.4); Carbon Dioxide 32 mmol/L (22-30); Chloride 97 mmol/L (96-108); Globulin 2.6 gm/dL (2.2-3.7); Glomerular Filtration Rate 103; Glucose 98 mg/dL (70-105); Lactate Dehydrogenase 202 U/L (135-225); Phosphorous 3.6 mg/dL (2.5-4.5); Triglycerides 66 mg/dL (<150); Uric Acid 4.3 mg/dL (2.5-8.0)
--- NOTE | 2021-02-24 10:59 | Discharge Summary ---
Discharge Provider Provider Patient information: Note initiated : 02/24/21 at 10:57 am Service Date, if different from initiated Date: [] Patient: Brendan Leon 70 y/o M admitted on 02/21/21 for right hip fracture. Discharge diagnosis Right hip fracture-Doing well. Managed per orthopedics. postop day 2. Pain management stable on home dose opioids * History of CAD remained stable on home dose Plavix, statin, beta- rivera/nitroglycerin * History of CHF currently well compensated continue beta-rivera/diuretic * Chronic pain on oxycodone, pain pump refilled by interventional pain clinic yesterday. On home dose opioids * History of hypertension stable on home dose beta-rivera/thiazide * BPH on tamsulosin/finasteride * Neuropathy managed on home dose gabapentin * Anxiety disorder managed on oxygen/BuSpar * History of COPD continue bronchodilators, supplemental oxygen * History of PVD continue PPI/sucralfate Brief hospital course Mr. Leon is a 70 year old M who presented to the ER following 1 month onset of right hip pain without specific precipitating event. Patient was evaluated a month ago with a negative hip imaging. Ortho next 30 days pain continue to worsen with progressive difficulty ambulating. He was evaluated at the pain clinic and underwent right knee and right hip steroid shot and underwent a repeat imaging that was consistent with right hip fracture. He was subsequently returned to the ER for evaluation. Orthopedics was consulted and recommended admission for operative intervention. Subsequently hospitalist service was consulted. At the time of my evaluation patient is alert and oriented. He was able to answer most of the questions. He takes chronic pain medication and is a very anxious personality. Denies trauma or fall and has been wondering what might have caused the fracture. Orthopedics ordered MRI in the morning to exclude bony pathology. Pain is reasonably controlled on pain medication. He denies fever, redness, chills, diarrhea, abdominal pain 02/22-patient due for surgical intervention today. MRI hip pending. No overnight events. Hemoglobin 8.9, stable hemodynamics and vitals. Pain in good control. Will review postop. 02/23-patient doing well. Postop day 1. Hemoglobin 8. No oozing or bleeding around the surgical site. Restarted on home medications. Pain in good control. Will undergo pain pump refill today by interventional pain clinic. No family at bedside. Discharge planning per orthopedics and case management 02/24-patient doing a lot better. Pain at baseline. Ambulating in tolerating diet. No additional concerns expressed with nursing staff. No significant postoperative area bruising or swelling. Stable labs and hemodynamics. No fever chills. Orthopedic recommends discharging to SNF. Detailed discharge instructions as below. Date of admission: 02/21/21 20:47 Discharge date: 02/24/21 Primary care physician: Abiola Mendiola Consults: 02/21/21 Consult to Physician [CONS] Stat Comment: Consulting Provider: Dax Santillan Reason For Exam: Physician to Consult 02/21/21 19:30 Consult to Physician [CONS] Routine Comment: Consulting Provider: Ian Higgins Reason For Exam: Physician to Consult Discharge Meds Discharge Medications Home Medications ketoconazole 2 % topical cream 1 applic TOPICAL QDAY 02/05/20 [History Confirmed 02/21/21 Last Taken Unknown] vit C 250 mg-vit E 90 mg-zinc 40 mg-copper 1 [id number] capsule 1 tab PO BID 02/05/20 [History Confirmed 02/21/21 Last Taken Unknown] Nebulizer machine; tubing and supplies #1 ea 03/29/20 [Rx Confirmed 02/21/21 Last Taken Unknown] ipratropium 0.5 mg-albuterol 3 mg (2.5 mg base)/3 mL nebulization soln 3 ml INHALATION QID PRN #180 ml 03/29/20 [Rx Confirmed 02/21/21 Last Taken Unknown] duloxetine 60 mg capsule,delayed release 60 mg PO DAILY #90 cap 08/29/20 [Rx Confirmed 02/21/21 Last Taken Unknown] sucralfate 1 gram tablet 1 g PO QID PRN #120 tab 09/23/20 [Rx Confirmed 02/21/21 Last Taken Unknown] nitroglycerin 0.4 mg sublingual tablet See Rx Instructions .ROUTE .COMPLEX #30 tab 10/10/20 [Rx Confirmed 02/21/21 Last Taken Unknown] zolpidem 10 mg tablet 10 mg PO QHS #30 tab 11/22/20 [Rx Confirmed 02/21/21 Last Taken Unknown] ergocalciferol (vitamin D2) 1,250 mcg (50,000 unit) capsule See Rx Instructions .ROUTE .COMPLEX #12 cap 11/30/20 [Rx Confirmed 02/21/21 Last Taken Unknown] atorvastatin 20 mg tablet 20 mg PO QHS #90 tab 12/05/20 [Rx Confirmed 02/21/21 Last Taken Unknown] pantoprazole 40 mg tablet,delayed release See Rx Instructions .ROUTE .COMPLEX #90 tab 12/05/20 [Rx Confirmed 02/21/21 Last Taken Unknown] cyclobenzaprine 5 mg tablet 5 mg PO TID PRN #60 tab 12/27/20 [Rx Confirmed 02/21/21 Last Taken Unknown] clopidogrel 75 mg tablet See Rx Instructions .ROUTE .COMPLEX #90 tab 01/12/21 [Rx Confirmed 02/21/21 Last Taken Unknown] metoprolol succinate 25 mg tablet,extended release 24 hr See Rx Instructions .ROUTE .COMPLEX #90 tab 01/12/21 [Rx Confirmed 02/21/21 Last Taken Unknown] finasteride 5 mg tablet See Rx Instructions .ROUTE .COMPLEX #30 tab 01/16/21 [Rx Confirmed 02/21/21 Last Taken Unknown] promethazine 25 mg tablet See Rx Instructions .ROUTE .COMPLEX #30 tab 01/16/21 [Rx Confirmed 02/21/21 Last Taken Unknown] potassium chloride 10 mEq tablet,extended release See Rx Instructions .ROUTE .COMPLEX #90 tab 01/19/21 [Rx Confirmed 02/21/21 Last Taken Unknown] buspirone 15 mg tablet See Rx Instructions .ROUTE .COMPLEX #60 tab 02/01/21 [Rx Confirmed 02/21/21 Last Taken Unknown] furosemide 20 mg tablet See Rx Instructions .ROUTE .COMPLEX #180 tab 02/10/21 [Rx Confirmed 02/21/21 Last Taken Unknown] tamsulosin 0.4 mg capsule See Rx Instructions .ROUTE .COMPLEX #180 cap 02/10/21 [Rx Confirmed 02/21/21 Last Taken Unknown] gabapentin 600 mg tablet See Rx Instructions .ROUTE .COMPLEX #120 tab 02/20/21 [Rx Confirmed 02/21/21 Last Taken Unknown] hydrochlorothiazide 25 mg tablet See Rx Instructions .ROUTE .COMPLEX #90 tab 02/20/21 [Rx Confirmed 02/21/21 Last Taken Unknown] hydroxyzine HCl 25 mg tablet 25 mg PO QID PRN #30 tab 02/20/21 [Rx Confirmed 02/21/21 Last Taken Unknown] magnesium oxide 400 mg (241.3 mg magnesium) tablet See Rx Instructions .ROUTE .COMPLEX #90 tab 02/20/21 [Rx Confirmed 02/21/21 Last Taken Unknown] trazodone 50 mg tablet 50 mg PO QHS #30 tab 02/20/21 [Rx Confirmed 02/21/21 Last Taken Unknown] oxycodone-acetaminophen 10 mg-325 mg tablet 1 tab PO .q 4-6hrs PRN #210 tab 02/21/21 [Rx Confirmed 02/21/21 Last Taken Unknown] acetaminophen [Tylenol] 1,000 mg PO Q8H #90 tab 02/23/21 [Rx Last Taken Unknown] docusate sodium [DOK] 100 mg PO BID #60 cap 02/23/21 [Rx Last Taken Unknown] methocarbamol 750 mg PO Q8H #30 tab 02/23/21 [Rx Last Taken Unknown] oxycodone 10 - 20 mg PO Q6 PRN #60 tab 02/23/21 [Rx Last Taken Unknown] COURSE Hospital Course Hospital course: . Discharge diagnosis: . Time Spent with Patient Time attestation: Total time spent providing and/or coordinating discharge services: EXAM Constitutional Vitals: Temp Pulse Resp BP Pulse Ox 97.7 F 98 H 20 120/72 96 02/24/21 07:33 02/24/21 07:33 02/24/21 07:33 02/24/21 07:33 02/24/21 07:33 Discharge Data Data Completed and Pending Labs on day of discharge: Labs from last 24 hours 02/24/21 02/24/21 05:20 05:20 WBC 10.1 RBC 2.45 L Hgb 7.5 L Hct 23.0 L MCV 93.9 MCH 30.6 MCHC 32.6 RDW 19.8 H Plt Count 174 MPV 13.4 H Neut % (Auto) 61.9 Lymph % (Auto) 17.8 [place] % (Auto) 19.8 H Eos % (Auto) 0.1 Baso % (Auto) 0.4 Lymph # (Auto) 1.79 [place] # (Auto) 1.99 H Eos # (Auto) 0.01 Baso # (Auto) 0.04 Absolute Neutrophils 6.22 Sodium 135 Potassium 4.0 Chloride 97 Carbon Dioxide 32 H Anion Gap 6.0 L BUN 16 Creatinine 0.6 L GFR Calculation 103 Glucose 98 Uric Acid 4.3 Calcium 8.8 Phosphorus 3.6 Magnesium 1.9 Total Bilirubin 0.7 Direct Bilirubin 0.2 GGT 31 AST 20 ALT 11 Alkaline Phosphatase 99 Lactate Dehydrogenase 202 Total Protein 6.0 Albumin 3.4 Globulin 2.6 Albumin/Globulin Ratio 1.3 Triglycerides 66 Preliminary micro results at discharge 02/22/21 06:21 Blood Culture - Preliminary Blood 02/22/21 06:13 Blood Culture - Preliminary Blood Discharge Plan Patient/Caregiver Discharge Instructions Activity: ambulate only with your walker and increase activity as tolerated Diet: Regular Diet Prescriptions: New acetaminophen [Tylenol] 325 mg Tablet 1,000 mg PO Q8H Qty: 90 RF: 0 docusate sodium [DOK] 100 mg Capsule 100 mg PO BID Qty: 60 RF: 0 methocarbamol 750 mg tablet 750 mg PO Q8H Qty: 30 RF: 0 oxycodone 10 mg tablet 10 - 20 mg PO Q6 PRN (Reason: pain) Qty: 60 RF: 0 Continued duloxetine 60 mg capsule,delayed release(DR/EC) 60 mg PO DAILY Qty: 90 RF: 4 sucralfate [Carafate] 1 gram tablet 1 g PO QID PRN (Reason: acid reflux) Qty: 120 RF: 0 nitroglycerin 0.4 mg tablet, sublingual See Rx Instructions .ROUTE .COMPLEX Qty: 30 RF: 0 zolpidem [Ambien] 10 mg tablet 10 mg PO QHS Qty: 30 RF: 5 ergocalciferol (vitamin D2) [Vitamin D2] 1,250 mcg (50,000 unit) capsule See Rx Instructions .ROUTE .COMPLEX Qty: 12 RF: 1 atorvastatin 20 mg tablet 20 mg PO QHS Qty: 90 RF: 3 pantoprazole 40 mg tablet,delayed release (DR/EC) See Rx Instructions .ROUTE .COMPLEX Qty: 90 RF: 3 clopidogrel 75 mg tablet See Rx Instructions .ROUTE .COMPLEX Qty: 90 RF: 0 metoprolol succinate 25 mg tablet extended release 24 hr See Rx Instructions .ROUTE .COMPLEX Qty: 90 RF: 0 finasteride 5 mg tablet See Rx Instructions .ROUTE .COMPLEX Qty: 30 RF: 6 promethazine 25 mg tablet See Rx Instructions .ROUTE .COMPLEX Qty: 30 RF: 3 potassium chloride 10 mEq tablet extended release See Rx Instructions .ROUTE .COMPLEX Qty: 90 RF: 6 buspirone 15 mg tablet See Rx Instructions .ROUTE .COMPLEX Qty: 60 RF: 2 tamsulosin 0.4 mg capsule See Rx Instructions .ROUTE .COMPLEX Qty: 180 RF: 0 furosemide 20 mg tablet See Rx Instructions .ROUTE .COMPLEX Qty: 180 RF: 0 trazodone 50 mg tablet 50 mg PO QHS Qty: 30 RF: 2 magnesium oxide 400 mg (241.3 mg magnesium) tablet See Rx Instructions .ROUTE .COMPLEX Qty: 90 RF: 1 hydrochlorothiazide 25 mg tablet See Rx Instructions .ROUTE .COMPLEX Qty: 90 RF: 1 gabapentin 600 mg tablet See Rx Instructions .ROUTE .COMPLEX Qty: 120 RF: 4 hydroxyzine HCl 25 mg tablet 25 mg PO QID PRN (Reason: anxiety) Qty: 30 RF: 1 PreserVision AREDS-2 [id number] re-jtqi-be-mg capsule 1 tab PO BID RF: 0 ketoconazole 2 % cream 1 applic TOPICAL QDAY RF: 0 ipratropium-albuterol 0.5 mg-3 mg(2.5 mg base)/3 mL solution for nebulization 3 ml INHALATION QID PRN (Reason: shortness of breath or wheezing) Qty: 180 RF: 6 (DME) Nebulizer machine; tubing and supplies Qty: 1 RF: 0 cyclobenzaprine 5 mg tablet 5 mg PO TID PRN (Reason: muscle spasm) Qty: 60 RF: 0 oxycodone-acetaminophen 10-325 mg tablet 1 tab PO .q 4-6hrs PRN (Reason: Pain) Qty: 210 RF: 0 Follow Up Plan Patient Disposition: Xfer SNF Prognosis: Fair Rehab Potential: Fair I certify that the patient requires SNF services: Yes Overall status at discharge: patient is progressing back to baseline Discharge Orders: Discharge Order (Routine); Ordered 02/24/21 Ordered By: Dax CORLEY VTE Deep Vein Thrombosis/Pulmonary Embolism Present on Admission: No
[2021-02-24] MEDS ORDERED: [UNRECOGNIZED DRUG - REMARK] IJ ONE (12:24)
== END 2021-02-24 12:25 | DRG 522 ==
LOC: ED 18:25 → MEDSUR 20:47
PROVIDERS: ADMIT Internal Medicine; ATTEND Internal Medicine

== ENCOUNTER 2025-02-22 15:33 | Inpatient (IN) ==
[2025-02-22 16:17] LABS: Bilirubin,Urine Negative (Negative); Color,Urine Yellow; Glucose,Urine (UA) Negative (Negative); Ketones,Urine Negative (Negative); Leukocyte Esterase,Urine Negative /uL (Negative); PH,Urine 7.0 (5.0-9.0); Protein,Urine Negative (Negative); Specific Gravity,Urine 1.010 (1.000-1.035); Urobilinogen,Urine Normal
[2025-02-22] MEDS: 0.9 % SODIUM CHLORIDE 500 ML IV ONE (16:21)
[2025-02-22 16:31] LABS: Basophils # (Auto) 0.03 K/mcL (0.00-0.30); Basophils % (Auto) 0.9 % (0.0-2.0); Eosinophils # (Auto) 0 K/mcL (0.00-0.70); Eosinophils % (Auto) 0 % (0.0-7.0); Hematocrit 27.4 % (40.1-51.0); Hemoglobin 8.5 g/dL (13.7-17.5); Lymphocytes # (Auto) 0.63 K/mcL (1.50-4.80); Lymphocytes % (Auto) 18.3 % (15.5-49.0); Mean Corpuscular HGB Conc 31.0 g/dL (31.0-36.0); Monocytes # (Auto) 1.06 K/mcL (0.10-0.90); Monocytes % (Auto) 30.8 % (1.0-12.0); Neutrophils % (Auto) 36.9 % (38.0-78.0); Platelet Count 189 K/mcL (140-440); RBC 2.66 M/mcL (4.63-6.08); WBC 3.4 K/mcL (4.5-11.0)
[2025-02-22 16:47] LABS: ALT/SGPT 31 U/L (<40); AST/SGOT 43 U/L (<40); Albumin 2.9 gm/dL (3.2-5.2); Albumin/Globulin Ratio 0.7 (1.0-2.3); Alkaline Phosphatase 108 U/L (39-117); Anion Gap 9.0 (8.0-16.0); Bilirubin,Total 1.0 mg/dL (0.1-1.0); Blood Urea Nitrogen 15 mg/dL (8-23); Calcium 8.2 mg/dL (8.6-10.4); Carbon Dioxide 27 mmol/L (22-30); Chloride 93 mmol/L (96-108); Globulin 4.4 gm/dL (2.2-3.7); Glucose 102 mg/dL (70-105); Potassium 4.2 mmol/L (3.3-5.1); Sodium 129 mmol/L (133-145)
[2025-02-22] MEDS: PIPERACILLIN SODIUM/TAZOBACTAM 3.375 GM in DEXTROSE 5% IN WATER 100 ML IV SCH ×2 (16:58→21:08)
[2025-02-22] MEDS: PIPERACILLIN SODIUM/TAZOBACTAM 3.375 GM in DEXTROSE 5% IN WATER 50 ML IV ONE ×2 (17:18→17:21)
[2025-02-22] MEDS: LACTATED RINGERS 1,000 ML IV SCH (17:32)
[2025-02-22] MEDS ORDERED: ALBUTEROL SULFATE 60 PUFF INHALER INH PRN (18:07)
[2025-02-22] MEDS: 0.9 % SODIUM CHLORIDE 1,000 ML IV SCH (19:02)
[2025-02-22 19:31] LABS: C-Reactive Protein 8.24 mg/dL (0.03-0.80)
[2025-02-22] MEDS: TAMSULOSIN 0.4 MG CAPSULE PO SCH (20:05)
[2025-02-22] MEDS: IPRATROPIUM/ALBUTEROL 3 ML AMPUL.NEB NEB PRN (20:50)
[2025-02-22] MEDS: ZOLPIDEM 5 MG TABLET PO PRN (21:07)
[2025-02-22] MEDS: 0.9 % SODIUM CHLORIDE 10 ML SYRINGE IV SCH (21:08)
[2025-02-22] MEDS: fentaNYL 100 MCG/2 ML VIAL ONE (23:24)
[2025-02-23] MEDS: fentaNYL 100 MCG/2 ML VIAL ONE (03:11)
[2025-02-23] MEDS: fentaNYL 100 MCG/2 ML VIAL IV PRN (03:11)
[2025-02-23 07:54] LABS: Basophils # (Auto) 0.01 K/mcL (0.00-0.30); Basophils % (Auto) 0.3 % (0.0-2.0); Eosinophils # (Auto) 0.01 K/mcL (0.00-0.70); Eosinophils % (Auto) 0.3 % (0.0-7.0); Hematocrit 22.0 % (40.1-51.0); Hemoglobin 7.1 g/dL (13.7-17.5); Lymphocytes # (Auto) 0.62 K/mcL (1.50-4.80); Lymphocytes % (Auto) 21.5 % (15.5-49.0); Mean Corpuscular HGB Conc 32.3 g/dL (31.0-36.0); Monocytes # (Auto) 0.85 K/mcL (0.10-0.90); Monocytes % (Auto) 29.4 % (1.0-12.0); Neutrophils % (Auto) 37.8 % (38.0-78.0); Platelet Count 150 K/mcL (140-440); RBC 2.20 M/mcL (4.63-6.08); WBC 2.9 K/mcL (4.5-11.0)
[2025-02-23] MEDS: METOPROLOL SUCCINATE 50 MG TAB.XL.24H PO SCH (08:11)
[2025-02-23] MEDS: PANTOPRAZOLE 40 MG TABLET PO SCH (08:11)
[2025-02-23] MEDS ORDERED: PANTOPRAZOLE 40 MG TABLET PO SCH (09:00)
[2025-02-23] MEDS: 0.9 % SODIUM CHLORIDE 250 ML IV SCH (10:38)
[2025-02-23] MEDS: ONDANSETRON 4 MG/2 ML VIAL IV PRN (16:04)
[2025-02-24] MEDS ORDERED: Ipratropium-Albuterol [Combivent Respimat] 20-100 mcg Inhaler INH PRN (16:36)
[2025-02-24] MEDS ORDERED: SUCRALFATE 1 GM TABLET PO SCH (17:00)
[2025-02-24] MEDS ORDERED: IOPAMIDOL 100 ML BOTTLE IV ONE (18:52)
[2025-02-24] MEDS: FINASTERIDE 5 MG TABLET PO SCH (20:50)
[2025-02-24] MEDS: MELATONIN 3 MG TABLET PO SCH (20:50)
[2025-02-24] MEDS: MIRTAZAPINE 15 MG TABLET PO SCH (20:50)
[2025-02-24] MEDS: TAMSULOSIN 0.4 MG CAPSULE PO SCH (20:50)
[2025-02-24] MEDS: SUCRALFATE 1 GM TABLET PO SCH (20:53)
[2025-02-25 06:54] LABS: ALT/SGPT 19 U/L (<40); AST/SGOT 32 U/L (<40); Albumin 2.5 gm/dL (3.2-5.2); Albumin/Globulin Ratio 0.7 (1.0-2.3); Alkaline Phosphatase 76 U/L (39-117); Anion Gap 8.0 (8.0-16.0); Bilirubin,Direct 0.4 mg/dL (<0.3); Bilirubin,Total 0.8 mg/dL (0.1-1.0); Blood Urea Nitrogen 7 mg/dL (8-23); Calcium 7.9 mg/dL (8.6-10.4); Carbon Dioxide 27 mmol/L (22-30); Chloride 96 mmol/L (96-108); Globulin 3.8 gm/dL (2.2-3.7); Glucose 85 mg/dL (70-105); Phosphorous 2.4 mg/dL (2.5-4.5); Potassium 3.8 mmol/L (3.3-5.1); Sodium 131 mmol/L (133-145); Triglycerides 66 mg/dL (<150); Uric Acid 2.3 mg/dL (2.5-8.0)
[2025-02-25 07:17] LABS: Basophils # (Auto) 0.01 K/mcL (0.00-0.30); Basophils % (Auto) 0.4 % (0.0-2.0); Eosinophils # (Auto) 0.01 K/mcL (0.00-0.70); Eosinophils % (Auto) 0.4 % (0.0-7.0); Hematocrit 27.9 % (40.1-51.0); Hemoglobin 9.1 g/dL (13.7-17.5); Lymphocytes # (Auto) 0.51 K/mcL (1.50-4.80); Lymphocytes % (Auto) 21.1 % (15.5-49.0); Mean Corpuscular HGB Conc 32.6 g/dL (31.0-36.0); Monocytes # (Auto) 0.61 K/mcL (0.10-0.90); Monocytes % (Auto) 25.2 % (1.0-12.0); Neutrophils % (Auto) 41.7 % (38.0-78.0); Platelet Count 135 K/mcL (140-440); RBC 2.90 M/mcL (4.63-6.08); WBC 2.4 K/mcL (4.5-11.0)
[2025-02-25] MEDS: LEVOTHYROXINE 25 MCG TABLET PO SCH (08:20)
[2025-02-25] MEDS: LORATADINE 10 MG TABLET PO SCH (08:21)
[2025-02-25] MEDS: MAGNESIUM OXIDE 400 MG TABLET PO SCH (08:22)
[2025-02-25] MEDS: MONTELUKAST 10 MG TABLET PO SCH (08:22)
[2025-02-26 07:21] LABS: Basophils # (Auto) 0.01 K/mcL (0.00-0.30); Basophils % (Auto) 0.5 % (0.0-2.0); Eosinophils # (Auto) 0.03 K/mcL (0.00-0.70); Eosinophils % (Auto) 1.4 % (0.0-7.0); Hematocrit 26.5 % (40.1-51.0); Hemoglobin 8.6 g/dL (13.7-17.5); Lymphocytes # (Auto) 0.55 K/mcL (1.50-4.80); Lymphocytes % (Auto) 25.5 % (15.5-49.0); Mean Corpuscular HGB Conc 32.5 g/dL (31.0-36.0); Monocytes # (Auto) 0.62 K/mcL (0.10-0.90); Monocytes % (Auto) 28.7 % (1.0-12.0); Neutrophils % (Auto) 34.2 % (38.0-78.0); Platelet Count 126 K/mcL (140-440); RBC 2.74 M/mcL (4.63-6.08); WBC 2.2 K/mcL (4.5-11.0)
[2025-02-26 07:32] LABS: ALT/SGPT 18 U/L (<40); AST/SGOT 31 U/L (<40); Albumin 2.3 gm/dL (3.2-5.2); Albumin/Globulin Ratio 0.6 (1.0-2.3); Alkaline Phosphatase 68 U/L (39-117); Anion Gap 6.0 (8.0-16.0); Bilirubin,Direct 0.4 mg/dL (<0.3); Bilirubin,Total 0.7 mg/dL (0.1-1.0); Blood Urea Nitrogen 8 mg/dL (8-23); Calcium 7.6 mg/dL (8.6-10.4); Carbon Dioxide 28 mmol/L (22-30); Chloride 99 mmol/L (96-108); Globulin 3.9 gm/dL (2.2-3.7); Glucose 83 mg/dL (70-105); Phosphorous 2.4 mg/dL (2.5-4.5); Potassium 3.4 mmol/L (3.3-5.1); Sodium 133 mmol/L (133-145); Triglycerides 75 mg/dL (<150); Uric Acid 2.0 mg/dL (2.5-8.0)
[2025-02-26 14:22] VITALS: TEMP 98.4
[2025-02-26 15:13] VITALS: O2SAT 95
== END 2025-02-26 15:05 | DRG 392 ==
LOC: ED 15:33 → MEDSUR 17:40
PROVIDERS: ADMIT Family Medicine Adult Medicine; ATTEND Family Medicine Adult Medicine

== ENCOUNTER 2025-05-06 17:02 | Inpatient (IN) ==
[2025-05-06] MEDS ORDERED: IOPAMIDOL 100 ML BOTTLE IV ONE (17:03)
[2025-05-06 18:21] LABS: Basophils # (Auto) 0.05 K/mcL (0.00-0.30); Basophils % (Auto) 1.6 % (0.0-2.0); Eosinophils # (Auto) 0.03 K/mcL (0.00-0.70); Eosinophils % (Auto) 0.9 % (0.0-7.0); Hematocrit 16.9 % (40.1-51.0); Hemoglobin 5.3 g/dL (13.7-17.5); Lymphocytes # (Auto) 0.91 K/mcL (1.50-4.80); Lymphocytes % (Auto) 28.6 % (15.5-49.0); Mean Corpuscular HGB Conc 31.4 g/dL (31.0-36.0); Monocytes # (Auto) 0.81 K/mcL (0.10-0.90); Monocytes % (Auto) 25.5 % (1.0-12.0); Neutrophils % (Auto) 35.5 % (38.0-78.0); Platelet Count 220 K/mcL (140-440); RBC 1.55 M/mcL (4.63-6.08); WBC 3.2 K/mcL (4.5-11.0)
[2025-05-06 18:29] LABS: ALT/SGPT 14 U/L (<40); AST/SGOT 37 U/L (<40); Albumin 3.0 gm/dL (3.2-5.2); Albumin/Globulin Ratio 0.8 (1.0-2.3); Alkaline Phosphatase 61 U/L (39-117); Anion Gap 7.0 (8.0-16.0); Bilirubin,Total 0.9 mg/dL (0.1-1.0); Blood Urea Nitrogen 19 mg/dL (8-23); Calcium 8.2 mg/dL (8.6-10.4); Carbon Dioxide 28 mmol/L (22-30); Chloride 100 mmol/L (96-108); Globulin 4.0 gm/dL (2.2-3.7); Glucose 90 mg/dL (70-105); Potassium 3.7 mmol/L (3.3-5.1); Sodium 135 mmol/L (133-145)
[2025-05-06 19:50] LABS: INR 1.6 (0.9-1.1); Partial Thromboplastin Time 33.1 sec (20.0-37.0); Prothrombin Time 20.7 sec (11.9-14.5)
[2025-05-06] MEDS: 0.9 % SODIUM CHLORIDE 250 ML IV SCH (20:14)
[2025-05-06 21:40] LABS: Bacteria,Urine 0 /hpf (0); Bilirubin,Urine NEGATIVE (Negative); Calcium Oxalate Crystals,Urine RARE /hpf; Color,Urine YELLOW; Glucose,Urine (UA) NEGATIVE (Negative); Ketones,Urine NEGATIVE (Negative); Leukocyte Esterase,Urine NEGATIVE /uL (Negative); PH,Urine 6.5 (5.0-9.0); Protein,Urine NEGATIVE (Negative); Specific Gravity,Urine 1.010 (1.000-1.035); Urobilinogen,Urine 4.0 mg/dL
[2025-05-06] MEDS: ASPIRIN 325 MG ENTERIC COATED TABLET PO ONE (22:44)
[2025-05-06] MEDS: CLOPIDOGREL 75 MG TABLET PO ONE (22:44)
[2025-05-06] MEDS: ATORVASTATIN 40 MG TABLET PO ONE (22:44)
[2025-05-07] MEDS: LORazepam 2 MG/ML VIAL IV ONE (01:47)
[2025-05-07] MEDS: FUROSEMIDE 40 MG/4 ML VIAL IV ONE (01:47)
[2025-05-07 01:55] LABS: Hematocrit 23.4 % (40.1-51.0); Hemoglobin 7.7 g/dL (13.7-17.5)
[2025-05-07 02:09] LABS: Anion Gap 6.0 (8.0-16.0); Blood Urea Nitrogen 17 mg/dL (8-23); Calcium 8.1 mg/dL (8.6-10.4); Carbon Dioxide 28 mmol/L (22-30); Chloride 101 mmol/L (96-108); Glucose 85 mg/dL (70-105); Potassium 4.0 mmol/L (3.3-5.1); Sodium 135 mmol/L (133-145)
[2025-05-07] MEDS: LIDOCAINE 2% URO-JET 10 ML JEL.PF.APP UR ONE ×2 (02:33→08:25)
[2025-05-07 05:11] LABS: Basophils # (Auto) 0.03 K/mcL (0.00-0.30); Basophils % (Auto) 1.0 % (0.0-2.0); Eosinophils # (Auto) 0.02 K/mcL (0.00-0.70); Eosinophils % (Auto) 0.7 % (0.0-7.0); Hematocrit 21.8 % (40.1-51.0); Hemoglobin 7.3 g/dL (13.7-17.5); Lymphocytes # (Auto) 0.57 K/mcL (1.50-4.80); Lymphocytes % (Auto) 19.3 % (15.5-49.0); Mean Corpuscular HGB Conc 33.5 g/dL (31.0-36.0); Monocytes # (Auto) 0.85 K/mcL (0.10-0.90); Monocytes % (Auto) 28.7 % (1.0-12.0); Neutrophils % (Auto) 41.5 % (38.0-78.0); Platelet Count 171 K/mcL (140-440); RBC 2.17 M/mcL (4.63-6.08); WBC 3.0 K/mcL (4.5-11.0)
[2025-05-07 05:25] LABS: ALT/SGPT 12 U/L (<40); AST/SGOT 30 U/L (<40); Albumin 2.7 gm/dL (3.2-5.2); Albumin/Globulin Ratio 0.7 (1.0-2.3); Alkaline Phosphatase 56 U/L (39-117); Anion Gap 5.0 (8.0-16.0); Bilirubin,Direct 0.7 mg/dL (<0.3); Bilirubin,Total 1.4 mg/dL (0.1-1.0); Blood Urea Nitrogen 15 mg/dL (8-23); Calcium 7.8 mg/dL (8.6-10.4); Carbon Dioxide 30 mmol/L (22-30); Chloride 99 mmol/L (96-108); Globulin 3.7 gm/dL (2.2-3.7); Glucose 86 mg/dL (70-105); Phosphorous 2.6 mg/dL (2.5-4.5); Potassium 3.6 mmol/L (3.3-5.1); Sodium 134 mmol/L (133-145); Triglycerides 67 mg/dL (<150); Uric Acid 7.1 mg/dL (2.5-8.0)
[2025-05-07] MEDS ORDERED: FLEETS ADULT 1 DOSE ENEMA PR PRN (08:31)
[2025-05-07] MEDS ORDERED: POTASSIUM CHLORIDE 40 MEQ in DEXTROSE 5% IN WATER 500 ML IV PRN (08:33)
[2025-05-07] MEDS ORDERED: POTASSIUM CHLORIDE 20 MEQ TABLET PO PRN ×2 (08:33)
[2025-05-07] MEDS ORDERED: SENNOSIDES 1 TABLET PO PRN (08:33)
[2025-05-07] MEDS ORDERED: POLYETHYLENE GLYCOL 3350 17 GM PACKET PO PRN (08:33)
[2025-05-07] MEDS ORDERED: ACETAMINOPHEN 325 MG TABLET PO PRN (08:33)
[2025-05-07] MEDS ORDERED: METOCLOPRAMIDE 10 MG/2 ML VIAL IV PRN (08:33)
[2025-05-07] MEDS ORDERED: Tacrolimus 0.1 % ointment TOPICAL PRN (08:50)
[2025-05-07] MEDS: DIAZEPAM 10 MG/2 ML SYRINGE IV PRN (09:49)
[2025-05-07 10:20] LABS: HDL Cholesterol 20.0 mg/dL (>40); LDL Cholesterol,Calculated 34.0 mg/dL (<100); Triglycerides 70.0 mg/dL (<150)
[2025-05-07 10:31] LABS: Ferritin 1597.0 ng/mL (30.0-400.0)
[2025-05-07] MEDS: Budesonide-Glycopyrrolate-Formoterol [Breztri Aerosphere] Inhaler INH SCH (10:57)
[2025-05-07] MEDS: MONTELUKAST 10 MG TABLET PO SCH (11:14)
[2025-05-07] MEDS: LEVOTHYROXINE 25 MCG TABLET PO SCH (11:14)
[2025-05-07] MEDS: ENOXAPARIN 40 MG/0.4 ML SYRINGE SQ SCH (11:14)
[2025-05-07] MEDS: FUROSEMIDE 40 MG/4 ML VIAL IV SCH (11:14)
[2025-05-07] MEDS: ASPIRIN 81 MG TAB.CHEW PO SCH (11:14)
[2025-05-07] MEDS: CLOPIDOGREL 75 MG TABLET PO SCH (11:15)
[2025-05-07] MEDS: DOCUSATE SODIUM 100 MG CAPSULE PO SCH (11:35)
[2025-05-07] MEDS: LIDOCAINE 4% TOP PATCH TOPICAL SCH (11:35)
[2025-05-07 11:50] LABS: Iron 105 ug/dL (61-157); TIBC Calculation 122 ug/dl (228-428); Transferrin % Saturation 86 % (20-50)
[2025-05-07] MEDS: ONDANSETRON 4 MG/2 ML VIAL IV PRN (13:05)
[2025-05-07] MEDS: IPRATROPIUM/ALBUTEROL 3 ML AMPUL.NEB NEB PRN (14:41)
[2025-05-07 16:41] LABS: Retic Absolute 0.04 M/mcL (0.03-0.11)
[2025-05-07] MEDS: FINASTERIDE 5 MG TABLET PO SCH (20:16)
[2025-05-07] MEDS: ATORVASTATIN 40 MG TABLET PO SCH (20:16)
[2025-05-07] MEDS: TAMSULOSIN 0.4 MG CAPSULE PO SCH (20:16)
[2025-05-07] MEDS: METOPROLOL TARTRATE 25 MG TABLET PO SCH (20:16)
[2025-05-07] MEDS: MELATONIN 3 MG TABLET PO SCH (20:16)
[2025-05-07] MEDS: BUDESONIDE 0.5 MG/2 ML AMPUL.NEB NEB SCH (20:47)
[2025-05-07] MEDS ORDERED: QUETIAPINE 50 MG PO SCH (21:00)
[2025-05-07] MEDS: ZOLPIDEM 5 MG TABLET PO PRN (21:57)
[2025-05-08 06:38] LABS: ALT/SGPT 9 U/L (<40); AST/SGOT 22 U/L (<40); Albumin 2.4 gm/dL (3.2-5.2); Albumin/Globulin Ratio 0.7 (1.0-2.3); Alkaline Phosphatase 50 U/L (39-117); Anion Gap 4.0 (8.0-16.0); Bilirubin,Direct 0.6 mg/dL (<0.3); Bilirubin,Total 1.0 mg/dL (0.1-1.0); Blood Urea Nitrogen 18 mg/dL (8-23); Calcium 7.9 mg/dL (8.6-10.4); Carbon Dioxide 33 mmol/L (22-30); Chloride 100 mmol/L (96-108); Globulin 3.4 gm/dL (2.2-3.7); Glucose 88 mg/dL (70-105); Phosphorous 2.9 mg/dL (2.5-4.5); Potassium 3.6 mmol/L (3.3-5.1); Sodium 137 mmol/L (133-145); Triglycerides 79 mg/dL (<150); Uric Acid 7.2 mg/dL (2.5-8.0)
[2025-05-08 07:09] LABS: Basophils # (Auto) 0.02 K/mcL (0.00-0.30); Basophils % (Auto) 0.9 % (0.0-2.0); Eosinophils # (Auto) 0.02 K/mcL (0.00-0.70); Eosinophils % (Auto) 0.9 % (0.0-7.0); Hematocrit 20.7 % (40.1-51.0); Hemoglobin 6.8 g/dL (13.7-17.5); Lymphocytes # (Auto) 0.50 K/mcL (1.50-4.80); Lymphocytes % (Auto) 21.8 % (15.5-49.0); Mean Corpuscular HGB Conc 32.9 g/dL (31.0-36.0); Monocytes # (Auto) 0.66 K/mcL (0.10-0.90); Monocytes % (Auto) 28.8 % (1.0-12.0); Neutrophils % (Auto) 40.6 % (38.0-78.0); Platelet Count 162 K/mcL (140-440); RBC 2.01 M/mcL (4.63-6.08); WBC 2.3 K/mcL (4.5-11.0)
[2025-05-08] MEDS: PANTOPRAZOLE 40 MG TABLET PO SCH (07:44)
[2025-05-08] MEDS: 0.9 % SODIUM CHLORIDE 250 ML IV SCH (08:10)
[2025-05-08] MEDS: FUROSEMIDE 20 MG/2 ML VIAL IV ONE (10:28)
[2025-05-09 06:15] LABS: Basophils # (Auto) 0.05 K/mcL (0.00-0.30); Basophils % (Auto) 1.7 % (0.0-2.0); Eosinophils # (Auto) 0.03 K/mcL (0.00-0.70); Eosinophils % (Auto) 1.0 % (0.0-7.0); Hematocrit 30.6 % (40.1-51.0); Hemoglobin 10.3 g/dL (13.7-17.5); Lymphocytes # (Auto) 0.68 K/mcL (1.50-4.80); Lymphocytes % (Auto) 22.7 % (15.5-49.0); Mean Corpuscular HGB Conc 33.7 g/dL (31.0-36.0); Monocytes # (Auto) 0.76 K/mcL (0.10-0.90); Monocytes % (Auto) 25.4 % (1.0-12.0); Neutrophils % (Auto) 44.2 % (38.0-78.0); Platelet Count 155 K/mcL (140-440); RBC 3.11 M/mcL (4.63-6.08); WBC 3.0 K/mcL (4.5-11.0)
[2025-05-09 06:32] LABS: ALT/SGPT 12 U/L (<40); AST/SGOT 26 U/L (<40); Albumin 2.7 gm/dL (3.2-5.2); Albumin/Globulin Ratio 0.7 (1.0-2.3); Alkaline Phosphatase 95 U/L (39-117); Anion Gap 7.0 (8.0-16.0); Bilirubin,Direct 0.4 mg/dL (<0.3); Bilirubin,Total 0.8 mg/dL (0.1-1.0); Blood Urea Nitrogen 16 mg/dL (8-23); Calcium 8.3 mg/dL (8.6-10.4); Carbon Dioxide 31 mmol/L (22-30); Chloride 96 mmol/L (96-108); Globulin 3.9 gm/dL (2.2-3.7); Glucose 97 mg/dL (70-105); Phosphorous 2.5 mg/dL (2.5-4.5); Potassium 3.7 mmol/L (3.3-5.1); Sodium 134 mmol/L (133-145); Triglycerides 67 mg/dL (<150); Uric Acid 5.4 mg/dL (2.5-8.0)
[2025-05-09] MEDS: MAGNESIUM SULFATE 2 GM/50 ML BAG IV PRN (07:44)
[2025-05-10 16:04] VITALS: TEMP 97.7; O2SAT 98
[2025-05-11] MEDS ORDERED: FLU VACC TS2025-26(65YR UP)/PF 180 MCG/0.5 ML SYRINGE IM ONE (10:00)
== END 2025-05-10 16:27 | DRG 64 ==
LOC: ED 17:02 → ICU 05-07 08:07 → MEDSUR 05-09 13:55
PROVIDERS: ADMIT Internal Medicine; ATTEND Internal Medicine